=== PATIENT | female | born 1980 | race American Indian/Alaskan Native ===

== ENCOUNTER 2021-09-17 13:07 | Emergency (ER) | payer SELFPAY ==
[2021-09-17] MEDS ORDERED: IPRATROPIUM 0.02% NEBU 2.5 ML IH ONE (13:18)
[2021-09-17] MEDS ORDERED: ALBUTEROL 2.5 MG/3 ML NEBU IH ONE (13:18)
[2021-09-17] MEDS ORDERED: KETOROLAC 30 MG/1 ML INJ IV ONE (13:18)
[2021-09-17] MEDS ORDERED: fentaNYL 100 MCG/2 ML INJ IV ONE (13:19)
[2021-09-17] MEDS ORDERED: EPINEPHrine/PF 1 MG/1 ML INJ SUB-Q ONE (13:19)
[2021-09-17] MEDS ORDERED: LACTATED RINGERS 1,000 ML IV ONE (13:19)
--- NOTE | 2021-09-17 13:25 | Emergency Department Report ---
ED General Adult HPI - General Chief complaint: Adult Asthma Stated complaint: ASTHMA Time Seen by Provider: 09/17/21 13:18 Source: patient, EMS (Verbal report received from emergency medical services. EMS documentation not available at time of chart dictation ), RN notes reviewed, old records reviewed Mode of arrival: Stretcher Limitations: No Limitations - History of Present Illness Initial comments: The patient was evaluated in the emergency department for symptoms described in the history of present illness. He/she was evaluated in the context of the global COVID-19 pandemic, which necessitated consideration that the patient might be at risk for infection with the virus that causes COVID-19. Institutional protocols and algorithms that pertain to the evaluation of patients at risk for COVID-19 are in a state of rapid change based on information released by regulatory bodies including the CDC and federal and state organizations. These policies and algorithms were followed during the patient's care in the emergency department. Please note that these policies, procedures and recommendations changed on a rapid basis. This patient is a 41-year-old gentleman with a history of asthma and reactive airways disease, who presents to the ER today with EMS with a complaint of cough, wheezing, muscular back pain and chest wall pain. He reports this is similar to prior episodes of asthma exacerbation. He denies travel, surgery, immobilization, DVT/PE risk factors. He gave himself a 5 mg of his own albuterol, EMS administered 5 mg of albuterol, dexamethasone, as well as magnesium. In the emergency room, he was given additional albuterol, Atrovent, subcutaneous epinephrine, in addition to fentanyl and ketorolac. All of these dramatically improved his symptoms. He is now resting comfortably on a stretcher, and endorses significant improvement in symptoms. -: Gradual, hour(s) Consistency: constant Improves with: medication, rest Worsens with: movement - Related Data Previous Rx's Medication Instructions Recorded Last Taken Type Ibuprofen [Motrin 800 MG tab] 800 mg PO Q8HR PRN #30 tablet 09/03/19 Unknown Rx ALBUTEROL NEB's [Proventil 0.083% 2.5 mg IH TID PRN #30 neb 10/23/19 Unknown Rx NEBS] Ibuprofen [Motrin 600 MG tab] 600 mg PO Q8H PRN #20 tablet 03/28/20 Unknown Rx ALBUTEROL NEB's [Proventil 0.083% 2.5 mg IH TID PRN #1 box 04/15/20 Unknown Rx NEBS] Albuterol Mdi (or & Nicu Only) 2 puff IH QID PRN #1 inhalation 12/01/20 Unknown Rx [ProAir HFA Inhaler] Albuterol Sulfate [Albuterol 0.63% 0.63 mg IH TID PRN #1 box 12/01/20 Unknown Rx NEBS] Azithromycin [Zithromax Z-MARI] 250 mg PO DAILY #6 tab 12/01/20 Unknown Rx Montelukast [Singulair] 10 mg PO QPM #14 tablet 12/01/20 Unknown Rx Prednisone [predniSONE 10 mg 10 mg PO .TAPER #1 tab.ds.pk 12/01/20 Unknown Rx (6-Day Pack, 21 Tabs)] Albuterol Mdi (or & Nicu Only) 2 puff IH QID PRN #8.5 gram 01/17/21 Unknown Rx [ProAir HFA Inhaler] Albuterol Sulfate [Albuterol 0.63% 0.63 mg IH TID PRN #75 ml 02/11/21 Unknown Rx NEBS] Prednisone [predniSONE 10 mg 10 mg PO .TAPER #1 tab.ds.pk 02/11/21 Unknown Rx (6-Day Pack, 21 Tabs)] ALBUTEROL NEB's [Proventil 0.083% 2.5 mg IH TID PRN #1 box 04/28/21 Unknown Rx NEBS] Albuterol Mdi (or & Nicu Only) 2 puff IH QID PRN #8.5 gram 04/28/21 Unknown Rx [ProAir HFA Inhaler] Loratadine 10 mg PO DAILY 30 Days #30 capsule 04/28/21 Unknown Rx Prednisone [predniSONE 10 mg 10 mg PO .TAPER #1 tab.ds.pk 04/28/21 Unknown Rx (6-Day Pack, 21 Tabs)] ALBUTEROL NEB's [Proventil 0.083% 2.5 mg IH QID PRN #1 box 05/12/21 Unknown Rx NEBS] Albuterol Mdi (or & Nicu Only) 2 puff IH QID PRN #8.5 gram 05/12/21 Unknown Rx [ProAir HFA Inhaler] Budesonide/Formoterol Fumarate 1 inhalation IH DAILY #1 hfa.aer.ad 05/12/21 Unknown Rx [Symbicort 160-4.5 Mcg Inhaler] predniSONE [Deltasone] 40 mg PO QDAY 5 Days #10 tab 05/12/21 Unknown Rx ALBUTEROL NEB's [Proventil 0.083% 2.5 mg IH TID PRN #1 box 05/21/21 Unknown Rx NEBS] Albuterol Mdi (or & Nicu Only) 2 puff IH QID PRN #1 device 05/21/21 Unknown Rx [ProAir HFA Inhaler] Budesonide/Formoterol Fumarate 2 puff IH BID #1 device 05/21/21 Unknown Rx [Symbicort 160-4.5 Mcg Inhaler] Montelukast [Singulair] 10 mg PO QPM #30 tablet 05/21/21 Unknown Rx Prednisone [predniSONE 10 mg 10 mg PO .TAPER #1 05/21/21 Unknown Rx (6-Day Pack, 21 Tabs)] Albuterol Mdi (or & Nicu Only) 2 puff IH QID PRN #8.5 gram 06/19/21 Unknown Rx [ProAir HFA Inhaler] methylPREDNISolone [Medrol 4MG 4 mg PO DAILY #1 06/19/21 Unknown Rx DOSEPAK (21 tabs)] Albuterol Mdi (or & Nicu Only) 2 puff IH QID PRN #8.5 gram 07/14/21 Unknown Rx [ProAir HFA Inhaler] Albuterol Sulfate [Albuterol 0.63% 0.63 mg IH TID PRN #1 box 07/14/21 Unknown Rx NEBS] Benzonatate [Tessalon Perles] 100 mg PO Q8HR #21 cap 07/14/21 Unknown Rx Brompheniramine/Pseudoephed/Dm 10 ml PO TID PRN #120 ml 07/14/21 Unknown Rx [Bromfed Dm Cough Syrup] Montelukast [Singulair] 10 mg PO QPM #30 tablet 07/14/21 Unknown Rx Prednisone [predniSONE 10 mg 10 mg PO .TAPER #1 pack 07/14/21 Unknown Rx (6-Day Pack, 21 Tabs)] Albuterol Sulfate [Albuterol 0.63% 0.63 mg IH Q4HR PRN #2 ml 08/02/21 Unknown Rx NEBS] Albuterol Sulfate [Proair 90 mcg IH Q4HR PRN #2 aer.pow.ba 08/02/21 Unknown Rx Respiclick] predniSONE [Deltasone] 40 mg PO QDAY #8 tab 08/02/21 Unknown Rx ALBUTEROL NEB's [Proventil 0.083% 5 mg IH TID PRN #75 ml 09/07/21 Unknown Rx NEBS] Albuterol Mdi (or & Nicu Only) 2 puff IH QID PRN #1 inhalation 09/07/21 Unknown Rx [ProAir HFA Inhaler] Benzonatate [Tessalon Perles] 100 mg PO Q8HR PRN #30 capsule 09/07/21 Unknown Rx Loratadine 10 mg PO DAILY #30 cap 09/07/21 Unknown Rx Montelukast [Singulair] 10 mg PO QPM #30 tablet 09/07/21 Unknown Rx Prednisone [predniSONE 10 mg 10 mg PO .TAPER #21 tab.ds.pk 09/07/21 Unknown Rx (6-Day Pack, 21 Tabs)] Albuterol Sulfate [Albuterol 0.63% 0.63 mg IH Q4HR PRN #2 ml 09/17/21 Unknown Rx NEBS] Albuterol Sulfate [Proair 90 mcg IH Q4HR PRN #2 aer.pow.ba 09/17/21 Unknown Rx Respiclick] Montelukast [Singulair] 10 mg PO QPM #30 tablet 09/17/21 Unknown Rx predniSONE [Deltasone] 40 mg PO QDAY #8 tab 09/17/21 Unknown Rx Allergies Allergy/AdvReac Type Severity Reaction Status Date / Time No Known Allergies Allergy Verified 09/18/21 11:50 ED Review of Systems ROS: Stated complaint: ASTHMA Other details as noted in HPI Constitutional: denies: fever, malaise Eyes: denies: eye discharge ENT: congestion Respiratory: shortness of breath, SOB with exertion, SOB at rest, wheezing Cardiovascular: as per HPI. denies: syncope Gastrointestinal: denies: abdominal pain, vomiting Musculoskeletal: back pain Neurological: weakness Hematological/Lymphatic: denies: easy bleeding ED Past Medical Hx - Past Medical History Hx Asthma: Yes - Social History Smoking Status: Never Smoker Substance Use Type: None - Medications Home Medications: Home Medications Medication Instructions Recorded Confirmed Last Taken Type Ibuprofen [Motrin 800 MG tab] 800 mg PO Q8HR PRN #30 tablet 09/03/19 Unknown Rx ALBUTEROL NEB's [Proventil 0.083% 2.5 mg IH TID PRN #30 neb 10/23/19 Unknown Rx NEBS] Ibuprofen [Motrin 600 MG tab] 600 mg PO Q8H PRN #20 tablet 03/28/20 Unknown Rx ALBUTEROL NEB's [Proventil 0.083% 2.5 mg IH TID PRN #1 box 04/15/20 Unknown Rx NEBS] Albuterol Mdi (or & Nicu Only) 2 puff IH QID PRN #1 inhalation 12/01/20 Unknown Rx [ProAir HFA Inhaler] Albuterol Sulfate [Albuterol 0.63% 0.63 mg IH TID PRN #1 box 12/01/20 Unknown Rx NEBS] Azithromycin [Zithromax Z-MARI] 250 mg PO DAILY #6 tab 12/01/20 Unknown Rx Montelukast [Singulair] 10 mg PO QPM #14 tablet 12/01/20 Unknown Rx Prednisone [predniSONE 10 mg 10 mg PO .TAPER #1 tab.ds.pk 12/01/20 Unknown Rx (6-Day Pack, 21 Tabs)] Albuterol Mdi (or & Nicu Only) 2 puff IH QID PRN #8.5 gram 01/17/21 Unknown Rx [ProAir HFA Inhaler] Albuterol Sulfate [Albuterol 0.63% 0.63 mg IH TID PRN #75 ml 02/11/21 Unknown Rx NEBS] Prednisone [predniSONE 10 mg 10 mg PO .TAPER #1 tab.ds.pk 02/11/21 Unknown Rx (6-Day Pack, 21 Tabs)] ALBUTEROL NEB's [Proventil 0.083% 2.5 mg IH TID PRN #1 box 04/28/21 Unknown Rx NEBS] Albuterol Mdi (or & Nicu Only) 2 puff IH QID PRN #8.5 gram 04/28/21 Unknown Rx [ProAir HFA Inhaler] Loratadine 10 mg PO DAILY 30 Days #30 capsule 04/28/21 Unknown Rx Prednisone [predniSONE 10 mg 10 mg PO .TAPER #1 tab.ds.pk 04/28/21 Unknown Rx (6-Day Pack, 21 Tabs)] ALBUTEROL NEB's [Proventil 0.083% 2.5 mg IH QID PRN #1 box 05/12/21 Unknown Rx NEBS] Albuterol Mdi (or & Nicu Only) 2 puff IH QID PRN #8.5 gram 05/12/21 Unknown Rx [ProAir HFA Inhaler] Budesonide/Formoterol Fumarate 1 inhalation IH DAILY #1 hfa.aer.ad 05/12/21 Unknown Rx [Symbicort 160-4.5 Mcg Inhaler] predniSONE [Deltasone] 40 mg PO QDAY 5 Days #10 tab 05/12/21 Unknown Rx ALBUTEROL NEB's [Proventil 0.083% 2.5 mg IH TID PRN #1 box 05/21/21 Unknown Rx NEBS] Albuterol Mdi (or & Nicu Only) 2 puff IH QID PRN #1 device 05/21/21 Unknown Rx [ProAir HFA Inhaler] Budesonide/Formoterol Fumarate 2 puff IH BID #1 device 05/21/21 Unknown Rx [Symbicort 160-4.5 Mcg Inhaler] Montelukast [Singulair] 10 mg PO QPM #30 tablet 05/21/21 Unknown Rx Prednisone [predniSONE 10 mg 10 mg PO .TAPER #1 05/21/21 Unknown Rx (6-Day Pack, 21 Tabs)] Albuterol Mdi (or & Nicu Only) 2 puff IH QID PRN #8.5 gram 06/19/21 Unknown Rx [ProAir HFA Inhaler] methylPREDNISolone [Medrol 4MG 4 mg PO DAILY #1 06/19/21 Unknown Rx DOSEPAK (21 tabs)] Albuterol Mdi (or & Nicu Only) 2 puff IH QID PRN #8.5 gram 07/14/21 Unknown Rx [ProAir HFA Inhaler] Albuterol Sulfate [Albuterol 0.63% 0.63 mg IH TID PRN #1 box 07/14/21 Unknown Rx NEBS] Benzonatate [Tessalon Perles] 100 mg PO Q8HR #21 cap 07/14/21 Unknown Rx Brompheniramine/Pseudoephed/Dm 10 ml PO TID PRN #120 ml 04/01/22 Unknown Rx [Bromfed Dm Cough Syrup] Montelukast [Singulair] 10 mg PO QPM #30 tablet 07/14/21 Unknown Rx Prednisone [predniSONE 10 mg 10 mg PO .TAPER #1 pack 07/14/21 Unknown Rx (6-Day Pack, 21 Tabs)] Albuterol Sulfate [Albuterol 0.63% 0.63 mg IH Q4HR PRN #2 ml 08/02/21 Unknown Rx NEBS] Albuterol Sulfate [Proair 90 mcg IH Q4HR PRN #2 aer.pow.ba 08/02/21 Unknown Rx Respiclick] predniSONE [Deltasone] 40 mg PO QDAY #8 tab 08/02/21 Unknown Rx ALBUTEROL NEB's [Proventil 0.083% 5 mg IH TID PRN #75 ml 09/07/21 Unknown Rx NEBS] Albuterol Mdi (or & Nicu Only) 2 puff IH QID PRN #1 inhalation 09/07/21 Unknown Rx [ProAir HFA Inhaler] Benzonatate [Tessalon Perles] 100 mg PO Q8HR PRN #30 capsule 09/07/21 Unknown Rx Loratadine 10 mg PO DAILY #30 cap 09/07/21 Unknown Rx Montelukast [Singulair] 10 mg PO QPM #30 tablet 09/07/21 Unknown Rx Prednisone [predniSONE 10 mg 10 mg PO .TAPER #21 tab.ds.pk 09/07/21 Unknown Rx (6-Day Pack, 21 Tabs)] Albuterol Sulfate [Albuterol 0.63% 0.63 mg IH Q4HR PRN #2 ml 09/17/21 Unknown Rx NEBS] Albuterol Sulfate [Proair 90 mcg IH Q4HR PRN #2 aer.pow.ba 09/17/21 Unknown Rx Respiclick] Montelukast [Singulair] 10 mg PO QPM #30 tablet 09/17/21 Unknown Rx predniSONE [Deltasone] 40 mg PO QDAY #8 tab 09/17/21 Unknown Rx ED Physical Exam - General Limitations: No Limitations General appearance: alert, anxious - Head Head exam: Present: atraumatic, normocephalic - Eye Eye exam: Present: normal appearance, EOMI. Absent: nystagmus - ENT ENT exam: Present: normal exam, normal orophraynx, mucous membranes moist, normal external ear exam - Neck Neck exam: Present: normal inspection, full ROM. Absent: tenderness, meningismus - Respiratory Respiratory exam: Present: respiratory distress, wheezes, rhonchi, chest wall tenderness, accessory muscle use - Cardiovascular Cardiovascular Exam: Present: normal rhythm, tachycardia, normal heart sounds. Absent: bradycardia, irregular rhythm, systolic murmur, diastolic murmur, rubs, gallop - GI/Abdominal GI/Abdominal exam: Present: soft. Absent: distended, tenderness, guarding, rebound, rigid, pulsatile mass - Extremities Exam Extremities exam: Present: normal inspection, full ROM, other (2+ pulses noted in the bilateral upper and lower extremities. There is no palpable cord. negative Homans sign. Muscular compartments are soft. The pelvis is stable.). Absent: pedal edema, calf tenderness - Back Exam Back exam: Present: normal inspection, full ROM. Absent: tenderness, CVA tenderness (R), CVA tenderness (L), paraspinal tenderness, vertebral tenderness - Neurological Exam Neurological exam: Present: alert, oriented X3, normal gait, other (No facial droop. Tongue midline. Extraocular movements intact bilaterally. Facial sensation intact to light touch in V1, V2, V3 distribution bilaterally. 5 and a 5 strength in 4 extremities. Sensation intact to light touch in 4 extremities.). Absent: motor sensory deficit - Psychiatric Psychiatric exam: Present: anxious - Skin Skin exam: Present: warm, dry, intact, normal color. Absent: rash ED Course Vital Signs 09/17/21 09/17/21 09/17/21 13:09 13:20 13:22 Temperature 98.1 F Pulse Rate 124 H 122 H Pulse Rate [ Bilateral] Respiratory 20 Rate Respiratory Rate [Bilateral ] Blood Pressure 108/70 Blood Pressure 108/75 [Left] O2 Sat by Pulse 99 96 97 Oximetry 09/17/21 13:24 Temperature Pulse Rate Pulse Rate [ 115 H Bilateral] Respiratory Rate Respiratory 24 Rate [Bilateral ] Blood Pressure Blood Pressure [Left] O2 Sat by Pulse Oximetry - Reevaluation(s) Reevaluation #1: 09/17/21 13:57 Differential diagnosis, including but not limited to: Asthma exacerbation, bronchitis, costochondritis, pneumothorax, reactive airways disease Assessment and plan: 41-year-old gentleman, with reactive airways disease exacerbation. He denies DVT and pulmonary embolism risk factors, and he is low risk by Wells criteria for pulmonary embolism He was given albuterol, Atrovent, ketorolac, fentanyl, in the emergency room, with dramatic resolution of symptoms. EMS has administered albuterol, Decadron, and magnesium. His EKG is essentially unremarkable. His chest x-ray is unremarkable. His work of breathing is improved. He is still completing his albuterol and Atrovent therapy here in the emergency room, but given his remarkable clinical improvement, resolution of tachycardia, resolution of tachypnea and work of breathing, I anticipate that he will be suitable for discharge with appropriate medications. Reevaluation #2: 09/17/21 14:00 Heart rate currently 93 bpm. Reevaluation #3: 09/17/21 14:18 Final reassessment. On cell phone. In no acute distress. Tachycardia likely secondary to albuterol and epinephrine. No significant hypoxia. Suitable for discharge with outpatient follow-up Wheezing is markedly improved. ED Medical Decision Making - Lab Data Vital Signs 09/17/21 09/17/21 09/17/21 13:09 13:20 13:22 Temperature 98.1 F Pulse Rate 124 H 122 H Respiratory 20 Rate Blood Pressure 108/70 Blood Pressure 108/75 [Left] O2 Sat by Pulse 99 96 97 Oximetry - EKG Data -: EKG Interpreted by Ia EKG shows normal: sinus rhythm Rate: normal - EKG Data 09/17/21 13:56 The EKG is interpreted at 13: 56 Sinus rhythm, 93 bpm. Normal axis, normal P wave axis, normal intervals, and high left ventricular voltage. Abnormal EKG. Not a STEMI. - Radiology Data Radiology results: pending, report reviewed, image reviewed CHEST 1 VIEW INDICATION: dyspnea. COMPARISON: 09/07/21 FINDINGS: SUPPORT DEVICES: None. HEART: Within normal limits. LUNGS/PLEURA: No acute air space or interstitial disease. ADDITIONAL FINDINGS: None. IMPRESSION: 1. No acute findings. Signer Name: Gurwinder Khan MD Signed: 09/17/2021 12:44 PM Workstation Name: [id number] Critical care attestation.: If time is entered above; I have spent that time in minutes in the direct care of this critically ill patient, excluding procedure time. ED Disposition Clinical Impression: Asthma exacerbation Qualifiers: Asthma severity: moderate Asthma persistence: unspecified Qualified Code(s): J45.901 - Unspecified asthma with (acute) exacerbation Disposition: 01 HOME / SELF CARE / HOMELESS Is pt being admited?: No Does the pt Need Aspirin: No Condition: Good Instructions: Asthma, Adult Additional Instructions: Avoid consumption of alcohol, tobacco, and smoke products. May take an [id number] allergy medication as needed on a daily basis. Recommend follow-up with an outpatient primary care doctor or alkylation operator within the next week to 10 days. Take the medications as prescribed/directed. Please return to the emergency room right away with new pain, worsened pain, migration of pain, projectile vomiting, change in mental status, confusion, inability tolerate liquid feeds, new, worsened or different symptoms not present on the initial emergency room evaluation Prescriptions: Albuterol Sulfate [Albuterol 0.63% NEBS] 0.63 mg IH Q4HR PRN #2 ml PRN Reason: Wheezing predniSONE [Deltasone] 40 mg PO QDAY #8 tab Albuterol Sulfate [Proair Respiclick] 90 mcg IH Q4HR PRN #2 aer.pow.ba PRN Reason: Wheezing Montelukast [Singulair] 10 mg PO QPM #30 tablet Referrals: TERRIE PIERSON MD [Staff Physician] - 7-10 days [facility] [Provider Group] - 7-10 days Forms: Work/School Release Form(ED)
[2021-09-17 13:26] VITALS: BP 108/70
--- NOTE | 2021-09-17 13:49 | XRay Report ---
CHEST 1 VIEW INDICATION: dyspnea. COMPARISON: 09/07/21 FINDINGS: SUPPORT DEVICES: None. HEART: Within normal limits. LUNGS/PLEURA: No acute air space or interstitial disease. ADDITIONAL FINDINGS: None. IMPRESSION: 1. No acute findings. Signer Name: Gurwinder Khan MD Signed: 09/17/2021 1:44 PM Workstation Name: [id number]
--- NOTE | 2021-09-21 11:40 | Electrocardiograph Report ---
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
== END 2021-09-17 15:00 | disposition home or self-care (01) ==
LOC: EDSEX → ED 13:07 → MERGE 13:07 → ED 15:00
DX: J45.901 Unspecified asthma with (acute) exacerbation (principal); Z79.899 Other long term (current) drug therapy
CPT/HCPCS: 71045; 93005; 94640; 96361; 96372; 96374; 96375; 99284; J0171; J1885; J3010; J7120; 94644

== ENCOUNTER 2021-10-01 14:16 | Emergency (ER) | payer SELFPAY ==
[2021-10-01] MEDS ORDERED: methylPREDNISolone Sod Succinate 125 MG/2 ML INJ IM ONE (17:05)
[2021-10-01] MEDS ORDERED: ALBUTEROL 2.5 MG/3 ML NEBU IH ONE (17:05)
[2021-10-01] MEDS ORDERED: IPRATROPIUM 0.02% NEBU 2.5 ML IH ONE (17:05)
--- NOTE | 2021-10-01 17:41 | Emergency Department Report ---
ED Asthma HPI - General Chief Complaint: Adult Asthma Stated Complaint: ASTHMA Time Seen by Provider: 10/01/21 17:07 Source: patient Mode of arrival: Ambulatory Limitations: No Limitations - History of Present Illness Initial Comments: 41-year-old male presents to the ED complaining of shortness of breath. Patient states he has been using his albuterol inhaler at home with mom with mild relief. Patient has a history of asthma. He states that he has been intubated x2. Patient denies any chest pain, fever chills or abdominal pain at present time. Patient is alert and oriented x3. No acute distress noted at present. No Ill appearance noted at present time. MD Complaint: shortness of breath -: This morning Asthma History: childhood onset Severity: moderate Context: none known Associated Symptoms: none Treatments Prior to Arrival: inhaled bronchodilator - Related Data Current Asthma Therapy: inhaled bronchodilator, inhaled steroid Previous Rx's Medication Instructions Recorded Last Taken Type Ibuprofen [Motrin 800 MG tab] 800 mg PO Q8HR PRN #30 tablet 09/03/19 Unknown Rx ALBUTEROL NEB's [Proventil 0.083% 2.5 mg IH TID PRN #30 neb 10/23/19 Unknown Rx NEBS] Ibuprofen [Motrin 600 MG tab] 600 mg PO Q8H PRN #20 tablet 03/28/20 Unknown Rx ALBUTEROL NEB's [Proventil 0.083% 2.5 mg IH TID PRN #1 box 04/15/20 Unknown Rx NEBS] Albuterol Mdi (or & Nicu Only) 2 puff IH QID PRN #1 inhalation 12/01/20 Unknown Rx [ProAir HFA Inhaler] Albuterol Sulfate [Albuterol 0.63% 0.63 mg IH TID PRN #1 box 12/01/20 Unknown Rx NEBS] Azithromycin [Zithromax Z-MARI] 250 mg PO DAILY #6 tab 12/01/20 Unknown Rx Montelukast [Singulair] 10 mg PO QPM #14 tablet 12/01/20 Unknown Rx Prednisone [predniSONE 10 mg 10 mg PO .TAPER #1 tab.ds.pk 12/01/20 Unknown Rx (6-Day Pack, 21 Tabs)] Albuterol Mdi (or & Nicu Only) 2 puff IH QID PRN #8.5 gram 01/17/21 Unknown Rx [ProAir HFA Inhaler] Albuterol Sulfate [Albuterol 0.63% 0.63 mg IH TID PRN #75 ml 02/11/21 Unknown Rx NEBS] Prednisone [predniSONE 10 mg 10 mg PO .TAPER #1 tab.ds.pk 02/11/21 Unknown Rx (6-Day Pack, 21 Tabs)] ALBUTEROL NEB's [Proventil 0.083% 2.5 mg IH TID PRN #1 box 04/28/21 Unknown Rx NEBS] Albuterol Mdi (or & Nicu Only) 2 puff IH QID PRN #8.5 gram 04/28/21 Unknown Rx [ProAir HFA Inhaler] Loratadine 10 mg PO DAILY 30 Days #30 capsule 04/28/21 Unknown Rx Prednisone [predniSONE 10 mg 10 mg PO .TAPER #1 tab.ds.pk 04/28/21 Unknown Rx (6-Day Pack, 21 Tabs)] ALBUTEROL NEB's [Proventil 0.083% 2.5 mg IH QID PRN #1 box 05/12/21 Unknown Rx NEBS] Albuterol Mdi (or & Nicu Only) 2 puff IH QID PRN #8.5 gram 05/12/21 Unknown Rx [ProAir HFA Inhaler] Budesonide/Formoterol Fumarate 1 inhalation IH DAILY #1 hfa.aer.ad 05/12/21 Unknown Rx [Symbicort 160-4.5 Mcg Inhaler] predniSONE [Deltasone] 40 mg PO QDAY 5 Days #10 tab 05/12/21 Unknown Rx ALBUTEROL NEB's [Proventil 0.083% 2.5 mg IH TID PRN #1 box 05/21/21 Unknown Rx NEBS] Albuterol Mdi (or & Nicu Only) 2 puff IH QID PRN #1 device 05/21/21 Unknown Rx [ProAir HFA Inhaler] Budesonide/Formoterol Fumarate 2 puff IH BID #1 device 05/21/21 Unknown Rx [Symbicort 160-4.5 Mcg Inhaler] Montelukast [Singulair] 10 mg PO QPM #30 tablet 05/21/21 Unknown Rx Prednisone [predniSONE 10 mg 10 mg PO .TAPER #1 05/21/21 Unknown Rx (6-Day Pack, 21 Tabs)] Albuterol Mdi (or & Nicu Only) 2 puff IH QID PRN #8.5 gram 06/19/21 Unknown Rx [ProAir HFA Inhaler] methylPREDNISolone [Medrol 4MG 4 mg PO DAILY #1 06/19/21 Unknown Rx DOSEPAK (21 tabs)] Albuterol Mdi (or & Nicu Only) 2 puff IH QID PRN #8.5 gram 07/14/21 Unknown Rx [ProAir HFA Inhaler] Albuterol Sulfate [Albuterol 0.63% 0.63 mg IH TID PRN #1 box 07/14/21 Unknown Rx NEBS] Benzonatate [Tessalon Perles] 100 mg PO Q8HR #21 cap 07/14/21 Unknown Rx Brompheniramine/Pseudoephed/Dm 10 ml PO TID PRN #120 ml 07/14/21 Unknown Rx [Bromfed Dm Cough Syrup] Montelukast [Singulair] 10 mg PO QPM #30 tablet 07/14/21 Unknown Rx Prednisone [predniSONE 10 mg 10 mg PO .TAPER #1 pack 07/14/21 Unknown Rx (6-Day Pack, 21 Tabs)] Albuterol Sulfate [Albuterol 0.63% 0.63 mg IH Q4HR PRN #2 ml 08/02/21 Unknown Rx NEBS] Albuterol Sulfate [Proair 90 mcg IH Q4HR PRN #2 aer.pow.ba 08/02/21 Unknown Rx Respiclick] predniSONE [Deltasone] 40 mg PO QDAY #8 tab 08/02/21 Unknown Rx ALBUTEROL NEB's [Proventil 0.083% 5 mg IH TID PRN #75 ml 09/07/21 Unknown Rx NEBS] Albuterol Mdi (or & Nicu Only) 2 puff IH QID PRN #1 inhalation 09/07/21 Unknown Rx [ProAir HFA Inhaler] Benzonatate [Tessalon Perles] 100 mg PO Q8HR PRN #30 capsule 09/07/21 Unknown Rx Loratadine 10 mg PO DAILY #30 cap 09/07/21 Unknown Rx Montelukast [Singulair] 10 mg PO QPM #30 tablet 05/26/22 Unknown Rx Prednisone [predniSONE 10 mg 10 mg PO .TAPER #21 tab.ds.pk 09/07/21 Unknown Rx (6-Day Pack, 21 Tabs)] Albuterol Sulfate [Albuterol 0.63% 0.63 mg IH Q4HR PRN #2 ml 09/17/21 Unknown Rx NEBS] Albuterol Sulfate [Proair 90 mcg IH Q4HR PRN #2 aer.pow.ba 09/17/21 Unknown Rx Respiclick] Montelukast [Singulair] 10 mg PO QPM #30 tablet 09/17/21 Unknown Rx predniSONE [Deltasone] 40 mg PO QDAY #8 tab 09/17/21 Unknown Rx Albuterol Mdi (or & Nicu Only) 2 puff IH QID PRN 30 Days #8.5 gram 10/01/21 Unknown Rx [ProAir HFA Inhaler] Albuterol Sulfate [Albuterol 0.63% 0.63 mg IH TID PRN 30 Days #1 box 10/01/21 Unknown Rx NEBS] predniSONE [Deltasone] 50 mg PO QDAY 5 Days #5 tab 10/01/21 Unknown Rx Allergies Allergy/AdvReac Type Severity Reaction Status Date / Time No Known Allergies Allergy Verified 09/18/21 11:50 ED Review of Systems ROS: Stated complaint: ASTHMA Other details as noted in HPI Constitutional: denies: chills, fever Eyes: denies: eye pain, eye discharge, vision change ENT: denies: ear pain, throat pain Respiratory: denies: cough, shortness of breath, wheezing Cardiovascular: denies: chest pain, palpitations Endocrine: no symptoms reported Gastrointestinal: denies: abdominal pain, nausea, diarrhea Genitourinary: denies: urgency, dysuria Musculoskeletal: denies: back pain, joint swelling, arthralgia Skin: denies: rash, lesions Neurological: denies: headache, weakness, paresthesias Psychiatric: denies: anxiety, depression Hematological/Lymphatic: denies: easy bleeding, easy bruising ED Past Medical Hx - Past Medical History Previous Medical History?: Yes Hx Asthma: Yes (Intubation x2) - Surgical History Past Surgical History?: No - Social History Smoking Status: Current Some Day Smoker - Medications Home Medications: Home Medications Medication Instructions Recorded Confirmed Last Taken Type Ibuprofen [Motrin 800 MG tab] 800 mg PO Q8HR PRN #30 tablet 09/03/19 Unknown Rx ALBUTEROL NEB's [Proventil 0.083% 2.5 mg IH TID PRN #30 neb 10/23/19 Unknown Rx NEBS] Ibuprofen [Motrin 600 MG tab] 600 mg PO Q8H PRN #20 tablet 03/28/20 Unknown Rx ALBUTEROL NEB's [Proventil 0.083% 2.5 mg IH TID PRN #1 box 04/15/20 Unknown Rx NEBS] Albuterol Mdi (or & Nicu Only) 2 puff IH QID PRN #1 inhalation 12/01/20 Unknown Rx [ProAir HFA Inhaler] Albuterol Sulfate [Albuterol 0.63% 0.63 mg IH TID PRN #1 box 12/01/20 Unknown Rx NEBS] Azithromycin [Zithromax Z-MARI] 250 mg PO DAILY #6 tab 12/01/20 Unknown Rx Montelukast [Singulair] 10 mg PO QPM #14 tablet 12/01/20 Unknown Rx Prednisone [predniSONE 10 mg 10 mg PO .TAPER #1 tab.ds.pk 12/01/20 Unknown Rx (6-Day Pack, 21 Tabs)] Albuterol Mdi (or & Nicu Only) 2 puff IH QID PRN #8.5 gram 01/17/21 Unknown Rx [ProAir HFA Inhaler] Albuterol Sulfate [Albuterol 0.63% 0.63 mg IH TID PRN #75 ml 02/11/21 Unknown Rx NEBS] Prednisone [predniSONE 10 mg 10 mg PO .TAPER #1 tab.ds.pk 02/11/21 Unknown Rx (6-Day Pack, 21 Tabs)] ALBUTEROL NEB's [Proventil 0.083% 2.5 mg IH TID PRN #1 box 04/28/21 Unknown Rx NEBS] Albuterol Mdi (or & Nicu Only) 2 puff IH QID PRN #8.5 gram 04/28/21 Unknown Rx [ProAir HFA Inhaler] Loratadine 10 mg PO DAILY 30 Days #30 capsule 04/28/21 Unknown Rx Prednisone [predniSONE 10 mg 10 mg PO .TAPER #1 tab.ds.pk 04/28/21 Unknown Rx (6-Day Pack, 21 Tabs)] ALBUTEROL NEB's [Proventil 0.083% 2.5 mg IH QID PRN #1 box 05/12/21 Unknown Rx NEBS] Albuterol Mdi (or & Nicu Only) 2 puff IH QID PRN #8.5 gram 05/12/21 Unknown Rx [ProAir HFA Inhaler] Budesonide/Formoterol Fumarate 1 inhalation IH DAILY #1 hfa.aer.ad 05/12/21 Unknown Rx [Symbicort 160-4.5 Mcg Inhaler] predniSONE [Deltasone] 40 mg PO QDAY 5 Days #10 tab 05/12/21 Unknown Rx ALBUTEROL NEB's [Proventil 0.083% 2.5 mg IH TID PRN #1 box 05/21/21 Unknown Rx NEBS] Albuterol Mdi (or & Nicu Only) 2 puff IH QID PRN #1 device 05/21/21 Unknown Rx [ProAir HFA Inhaler] Budesonide/Formoterol Fumarate 2 puff IH BID #1 device 05/21/21 Unknown Rx [Symbicort 160-4.5 Mcg Inhaler] Montelukast [Singulair] 10 mg PO QPM #30 tablet 05/21/21 Unknown Rx Prednisone [predniSONE 10 mg 10 mg PO .TAPER #1 05/21/21 Unknown Rx (6-Day Pack, 21 Tabs)] Albuterol Mdi (or & Nicu Only) 2 puff IH QID PRN #8.5 gram 06/19/21 Unknown Rx [ProAir HFA Inhaler] methylPREDNISolone [Medrol 4MG 4 mg PO DAILY #1 06/19/21 Unknown Rx DOSEPAK (21 tabs)] Albuterol Mdi (or & Nicu Only) 2 puff IH QID PRN #8.5 gram 07/14/21 Unknown Rx [ProAir HFA Inhaler] Albuterol Sulfate [Albuterol 0.63% 0.63 mg IH TID PRN #1 box 07/14/21 Unknown Rx NEBS] Benzonatate [Tessalon Perles] 100 mg PO Q8HR #21 cap 07/14/21 Unknown Rx Brompheniramine/Pseudoephed/Dm 10 ml PO TID PRN #120 ml 07/14/21 Unknown Rx [Bromfed Dm Cough Syrup] Montelukast [Singulair] 10 mg PO QPM #30 tablet 07/14/21 Unknown Rx Prednisone [predniSONE 10 mg 10 mg PO .TAPER #1 pack 07/14/21 Unknown Rx (6-Day Pack, 21 Tabs)] Albuterol Sulfate [Albuterol 0.63% 0.63 mg IH Q4HR PRN #2 ml 08/02/21 Unknown Rx NEBS] Albuterol Sulfate [Proair 90 mcg IH Q4HR PRN #2 aer.pow.ba 08/02/21 Unknown Rx Respiclick] predniSONE [Deltasone] 40 mg PO QDAY #8 tab 08/02/21 Unknown Rx ALBUTEROL NEB's [Proventil 0.083% 5 mg IH TID PRN #75 ml 09/07/21 Unknown Rx NEBS] Albuterol Mdi (or & Nicu Only) 2 puff IH QID PRN #1 inhalation 09/07/21 Unknown Rx [ProAir HFA Inhaler] Benzonatate [Tessalon Perles] 100 mg PO Q8HR PRN #30 capsule 09/07/21 Unknown Rx Loratadine 10 mg PO DAILY #30 cap 09/07/21 Unknown Rx Montelukast [Singulair] 10 mg PO QPM #30 tablet 09/07/21 Unknown Rx Prednisone [predniSONE 10 mg 10 mg PO .TAPER #21 tab.ds.pk 09/07/21 Unknown Rx (6-Day Pack, 21 Tabs)] Albuterol Sulfate [Albuterol 0.63% 0.63 mg IH Q4HR PRN #2 ml 09/17/21 Unknown Rx NEBS] Albuterol Sulfate [Proair 90 mcg IH Q4HR PRN #2 aer.pow.ba 09/17/21 Unknown Rx Respiclick] Montelukast [Singulair] 10 mg PO QPM #30 tablet 09/17/21 Unknown Rx predniSONE [Deltasone] 40 mg PO QDAY #8 tab 09/17/21 Unknown Rx Albuterol Mdi (or & Nicu Only) 2 puff IH QID PRN 30 Days #8.5 gram 10/01/21 Unknown Rx [ProAir HFA Inhaler] Albuterol Sulfate [Albuterol 0.63% 0.63 mg IH TID PRN 30 Days #1 box 10/01/21 Unknown Rx NEBS] predniSONE [Deltasone] 50 mg PO QDAY 5 Days #5 tab 10/01/21 Unknown Rx ED Physical Exam - General Limitations: No Limitations General appearance: alert, in no apparent distress - Head Head exam: Present: atraumatic, normocephalic - Eye Eye exam: Present: normal appearance - ENT ENT exam: Present: mucous membranes moist - Neck Neck exam: Present: normal inspection - Respiratory Respiratory exam: Present: normal lung sounds bilaterally, wheezes. Absent: respiratory distress - Cardiovascular Cardiovascular Exam: Present: regular rate, normal rhythm. Absent: systolic murmur, diastolic murmur, rubs, gallop - GI/Abdominal GI/Abdominal exam: Present: soft, normal bowel sounds - Rectal Rectal exam: Present: deferred - Extremities Exam Extremities exam: Present: normal inspection - Back Exam Back exam: Present: normal inspection - Neurological Exam Neurological exam: Present: alert, oriented X3 - Psychiatric Psychiatric exam: Present: normal affect, normal mood - Skin Skin exam: Present: warm, dry, intact, normal color. Absent: rash ED Course Vital Signs 10/01/21 10/01/21 16:37 17:19 Temperature 98.1 F Pulse Rate 81 Respiratory 24 22 Rate Blood Pressure 96/76 [Right] O2 Sat by Pulse 98 95 Oximetry ED Medical Decision Making - Radiology Data [facility] [address] [place] [address] XRay Report Signed Patient: STEPHANIE PATEL MR#: [id number] : 1980 Acct:[id number] Age/Sex: 41 / M ADM Date: 10/01/21 Loc: ED Attending Dr: Ordering Physician: HARLAN DANIELLE Date of Service: 10/01/21 Procedure(s): XR chest routine 2V Accession Number(s): [id number] cc: HARLAN DANIELLE Fluoro Time In Minutes: CHEST 2 VIEWS INDICATION: Asthma. COMPARISON: 09/17/2021 FINDINGS: SUPPORT DEVICES: None. HEART: Within normal limits. LUNGS/PLEURA: No acute air space or interstitial disease. No pneumothorax. ADDITIONAL FINDINGS: None. IMPRESSION: 1. No acute findings. Signer Name: Gurwinder Khan MD Signed: 10/01/2021 5:42 PM Workstation Name: [id number] Transcribed By: CHRYSTAL Dictated By: Gurwinder Khan MD Electronically Authenticated By: Gurwinder Khan MD Signed Date/Time: 10/01/211741 DD/ 41 TD/TT: - Medical Decision Making 41-year-old male presents to the ED complaining of shortness of breath. Patient states he has been using his albuterol inhaler at home with mom with mild relief. Patient has a history of asthma. He states that he has been intubated x2. Patient denies any chest pain, fever chills or abdominal pain at present time. Patient is alert and oriented x3. No acute distress noted at present. No Ill appearance noted at present time. Physical examination is had wheezing noted in all lung hong . Patient is given albuterol 10 mg neb and Atrovent 1 mg neb . Solu-Medrol 120mg Im giving. No further bleeding is noted at time of discharge. 2 view chest x-ray shows no abnormality. bp 116/89 at time of d ischarge Rechecked the patient is resting quietly quietly and comfortable and feeling better. I discussed the results of diagnostic study, my clinical impression and the plan for further treatment with the patient. Patient agrees with plan and discharge at this present time. All question addressed. I have given the patient instruction regarding a diagnosis ,expectation ,follow- up and return precaution. I explained to the patient that emergent condition may arise and to return to the ED for new worsen and any new persisting condition. I have explained the importance of following up with the primary care physician or referral physician listed below has instructed. The patient verbalized understanding of discharge instruction. Critical care attestation.: If time is entered above; I have spent that time in minutes in the direct care of this critically ill patient, excluding procedure time. ED Disposition Clinical Impression: Asthma exacerbation Qualifiers: Asthma severity: moderate Asthma persistence: unspecified Qualified Code(s): J45.901 - Unspecified asthma with (acute) exacerbation Disposition: 01 HOME / SELF CARE / HOMELESS Is pt being admited?: No Does the pt Need Aspirin: No Condition: Stable Instructions: Asthma, Adult Additional Instructions: Take medication as prescribed return to the ED for any worsening symptom Prescriptions: Albuterol Sulfate [Albuterol 0.63% NEBS] 0.63 mg IH TID PRN 30 Days #1 box PRN Reason: Wheezing predniSONE [Deltasone] 50 mg PO QDAY 5 Days #5 tab Albuterol Mdi (or & Nicu Only) [ProAir HFA Inhaler] 2 puff IH QID PRN 30 Days #8.5 gram PRN Reason: Shortness Of Breath Referrals: ELLY MTZ MD [Staff Physician] - 3-5 Days Forms: Work/School Release Form(ED) Time of Disposition: 18:56
--- NOTE | 2021-10-01 17:46 | XRay Report ---
CHEST 2 VIEWS INDICATION: Asthma. COMPARISON: 09/17/2021 FINDINGS: SUPPORT DEVICES: None. HEART: Within normal limits. LUNGS/PLEURA: No acute air space or interstitial disease. No pneumothorax. ADDITIONAL FINDINGS: None. IMPRESSION: 1. No acute findings. Signer Name: Gurwinder Khan MD Signed: 10/01/2021 5:42 PM Workstation Name: [id number]
[2021-10-01 19:08] VITALS: BP 116/89
== END 2021-10-01 19:06 | disposition home or self-care (01) ==
LOC: ED 14:16
DX: J45.901 Unspecified asthma with (acute) exacerbation (principal); F17.200 Nicotine dependence, unspecified, uncomplicated; Z79.899 Other long term (current) drug therapy
CPT/HCPCS: 71046; 94640; 96372; 99283; J2930

== ENCOUNTER 2021-10-28 09:26 | Emergency (ER) | payer SELFPAY ==
[2021-10-28] MEDS ORDERED: ALBUTEROL 2.5 MG/3 ML NEBU IH ONE (16:40)
[2021-10-28] MEDS ORDERED: IPRATROPIUM 0.02% NEBU 2.5 ML IH ONE (16:41)
[2021-10-28] MEDS ORDERED: methylPREDNISolone Sod Succinate 125 MG/2 ML INJ IM ONE (16:42)
--- NOTE | 2021-10-28 16:57 | Emergency Department Report ---
ED Asthma HPI - General Chief Complaint: Adult Asthma Stated Complaint: ASTHMA/SOB/CHEST TIGHTNESS Source: patient Mode of arrival: Ambulatory Limitations: No Limitations - History of Present Illness Initial Comments: 41-year-old female presents to the ED complaining of shortness of breath times this a.m. patient has a history of asthma has been intubated several times. Patient states that he do not have a current primary care doctor. Patient states that he frequently comes to the ED for asthma medication. Patient states that he is working on his financial situation so that he would be able to get to a primary care doctor. Patient states he do have a nebulizer machine at home. He is currently out of the medication. Patient is alert and oriented x3. No acute distress noted. No ill appearance noted. MD Complaint: shortness of breath Onset/Timin -: Gradual Asthma History: childhood onset Severity: mild Context: none known Associated Symptoms: none - Related Data Current Asthma Therapy: none Previous Rx's Medication Instructions Recorded Last Taken Type Ibuprofen [Motrin 800 MG tab] 800 mg PO Q8HR PRN #30 tablet 09/03/19 Unknown Rx ALBUTEROL NEB's [Proventil 0.083% 2.5 mg IH TID PRN #30 neb 10/23/19 Unknown Rx NEBS] Ibuprofen [Motrin 600 MG tab] 600 mg PO Q8H PRN #20 tablet 03/28/20 Unknown Rx ALBUTEROL NEB's [Proventil 0.083% 2.5 mg IH TID PRN #1 box 04/15/20 Unknown Rx NEBS] Albuterol Mdi (or & Nicu Only) 2 puff IH QID PRN #1 inhalation 12/01/20 Unknown Rx [ProAir HFA Inhaler] Albuterol Sulfate [Albuterol 0.63% 0.63 mg IH TID PRN #1 box 12/01/20 Unknown Rx NEBS] Azithromycin [Zithromax Z-MARI] 250 mg PO DAILY #6 tab 12/01/20 Unknown Rx Montelukast [Singulair] 10 mg PO QPM #14 tablet 12/01/20 Unknown Rx Prednisone [predniSONE 10 mg 10 mg PO .TAPER #1 tab.ds.pk 12/01/20 Unknown Rx (6-Day Pack, 21 Tabs)] Albuterol Mdi (or & Nicu Only) 2 puff IH QID PRN #8.5 gram 01/17/21 Unknown Rx [ProAir HFA Inhaler] Albuterol Sulfate [Albuterol 0.63% 0.63 mg IH TID PRN #75 ml 02/11/21 Unknown Rx NEBS] Prednisone [predniSONE 10 mg 10 mg PO .TAPER #1 tab.ds.pk 02/11/21 Unknown Rx (6-Day Pack, 21 Tabs)] ALBUTEROL NEB's [Proventil 0.083% 2.5 mg IH TID PRN #1 box 04/28/21 Unknown Rx NEBS] Albuterol Mdi (or & Nicu Only) 2 puff IH QID PRN #8.5 gram 04/28/21 Unknown Rx [ProAir HFA Inhaler] Loratadine 10 mg PO DAILY 30 Days #30 capsule 04/28/21 Unknown Rx Prednisone [predniSONE 10 mg 10 mg PO .TAPER #1 tab.ds.pk 04/28/21 Unknown Rx (6-Day Pack, 21 Tabs)] ALBUTEROL NEB's [Proventil 0.083% 2.5 mg IH QID PRN #1 box 05/12/21 Unknown Rx NEBS] Albuterol Mdi (or & Nicu Only) 2 puff IH QID PRN #8.5 gram 05/12/21 Unknown Rx [ProAir HFA Inhaler] Budesonide/Formoterol Fumarate 1 inhalation IH DAILY #1 hfa.aer.ad 05/12/21 Unknown Rx [Symbicort 160-4.5 Mcg Inhaler] predniSONE [Deltasone] 40 mg PO QDAY 5 Days #10 tab 05/12/21 Unknown Rx ALBUTEROL NEB's [Proventil 0.083% 2.5 mg IH TID PRN #1 box 05/21/21 Unknown Rx NEBS] Albuterol Mdi (or & Nicu Only) 2 puff IH QID PRN #1 device 05/21/21 Unknown Rx [ProAir HFA Inhaler] Budesonide/Formoterol Fumarate 2 puff IH BID #1 device 05/21/21 Unknown Rx [Symbicort 160-4.5 Mcg Inhaler] Montelukast [Singulair] 10 mg PO QPM #30 tablet 05/21/21 Unknown Rx Prednisone [predniSONE 10 mg 10 mg PO .TAPER #1 05/21/21 Unknown Rx (6-Day Pack, 21 Tabs)] Albuterol Mdi (or & Nicu Only) 2 puff IH QID PRN #8.5 gram 06/19/21 Unknown Rx [ProAir HFA Inhaler] methylPREDNISolone [Medrol 4MG 4 mg PO DAILY #1 06/19/21 Unknown Rx DOSEPAK (21 tabs)] Albuterol Mdi (or & Nicu Only) 2 puff IH QID PRN #8.5 gram 07/14/21 Unknown Rx [ProAir HFA Inhaler] Albuterol Sulfate [Albuterol 0.63% 0.63 mg IH TID PRN #1 box 07/14/21 Unknown Rx NEBS] Benzonatate [Tessalon Perles] 100 mg PO Q8HR #21 cap 07/14/21 Unknown Rx Brompheniramine/Pseudoephed/Dm 10 ml PO TID PRN #120 ml 07/14/21 Unknown Rx [Bromfed Dm Cough Syrup] Montelukast [Singulair] 10 mg PO QPM #30 tablet 07/14/21 Unknown Rx Prednisone [predniSONE 10 mg 10 mg PO .TAPER #1 pack 07/14/21 Unknown Rx (6-Day Pack, 21 Tabs)] Albuterol Sulfate [Albuterol 0.63% 0.63 mg IH Q4HR PRN #2 ml 08/02/21 Unknown Rx NEBS] Albuterol Sulfate [Proair 90 mcg IH Q4HR PRN #2 aer.pow.ba 08/02/21 Unknown Rx Respiclick] predniSONE [Deltasone] 40 mg PO QDAY #8 tab 08/02/21 Unknown Rx ALBUTEROL NEB's [Proventil 0.083% 5 mg IH TID PRN #75 ml 09/07/21 Unknown Rx NEBS] Albuterol Mdi (or & Nicu Only) 2 puff IH QID PRN #1 inhalation 09/07/21 Unknown Rx [ProAir HFA Inhaler] Benzonatate [Tessalon Perles] 100 mg PO Q8HR PRN #30 capsule 09/07/21 Unknown Rx Loratadine 10 mg PO DAILY #30 cap 09/07/21 Unknown Rx Montelukast [Singulair] 10 mg PO QPM #30 tablet 09/07/21 Unknown Rx Prednisone [predniSONE 10 mg 10 mg PO .TAPER #21 tab.ds.pk 09/07/21 Unknown Rx (6-Day Pack, 21 Tabs)] Albuterol Sulfate [Albuterol 0.63% 0.63 mg IH Q4HR PRN #2 ml 09/17/21 Unknown Rx NEBS] Albuterol Sulfate [Proair 90 mcg IH Q4HR PRN #2 aer.pow.ba 09/17/21 Unknown Rx Respiclick] Montelukast [Singulair] 10 mg PO QPM #30 tablet 09/17/21 Unknown Rx predniSONE [Deltasone] 40 mg PO QDAY #8 tab 09/17/21 Unknown Rx Albuterol Mdi (or & Nicu Only) 2 puff IH QID PRN 30 Days #8.5 gram 10/01/21 Unknown Rx [ProAir HFA Inhaler] Albuterol Sulfate [Albuterol 0.63% 0.63 mg IH TID PRN 30 Days #1 box 10/01/21 Unknown Rx NEBS] predniSONE [Deltasone] 50 mg PO QDAY 5 Days #5 tab 10/01/21 Unknown Rx Albuterol Mdi (or & Nicu Only) 2 puff IH QID PRN #8.5 gram 10/28/21 Unknown Rx [ProAir HFA Inhaler] Albuterol Sulfate [Albuterol 0.63% 0.63 mg IH TID PRN 30 Days #1 box 10/28/21 Unknown Rx NEBS] predniSONE [Deltasone] 50 mg PO QDAY 5 Days #5 tab 10/28/21 Unknown Rx Allergies Allergy/AdvReac Type Severity Reaction Status Date / Time No Known Allergies Allergy Verified 09/18/21 11:50 ED Review of Systems ROS: Stated complaint: ASTHMA/SOB/CHEST TIGHTNESS Other details as noted in HPI Constitutional: denies: chills, fever Eyes: denies: eye pain, eye discharge, vision change ENT: denies: ear pain, throat pain Respiratory: wheezing. denies: cough, shortness of breath Cardiovascular: denies: chest pain, palpitations Endocrine: no symptoms reported Gastrointestinal: denies: abdominal pain, nausea, diarrhea Genitourinary: denies: urgency, dysuria Musculoskeletal: denies: back pain, joint swelling, arthralgia Skin: denies: rash, lesions Neurological: denies: headache, weakness, paresthesias Psychiatric: denies: anxiety, depression Hematological/Lymphatic: denies: easy bleeding, easy bruising ED Past Medical Hx - Past Medical History Previous Medical History?: Yes Hx Asthma: Yes (Intubation x2) - Surgical History Past Surgical History?: No - Social History Smoking Status: Unknown if ever smoked - Medications Home Medications: Home Medications Medication Instructions Recorded Confirmed Last Taken Type Ibuprofen [Motrin 800 MG tab] 800 mg PO Q8HR PRN #30 tablet 09/03/19 Unknown Rx ALBUTEROL NEB's [Proventil 0.083% 2.5 mg IH TID PRN #30 neb 10/23/19 Unknown Rx NEBS] Ibuprofen [Motrin 600 MG tab] 600 mg PO Q8H PRN #20 tablet 03/28/20 Unknown Rx ALBUTEROL NEB's [Proventil 0.083% 2.5 mg IH TID PRN #1 box 04/15/20 Unknown Rx NEBS] Albuterol Mdi (or & Nicu Only) 2 puff IH QID PRN #1 inhalation 12/01/20 Unknown Rx [ProAir HFA Inhaler] Albuterol Sulfate [Albuterol 0.63% 0.63 mg IH TID PRN #1 box 12/01/20 Unknown Rx NEBS] Azithromycin [Zithromax Z-MARI] 250 mg PO DAILY #6 tab 12/01/20 Unknown Rx Montelukast [Singulair] 10 mg PO QPM #14 tablet 12/01/20 Unknown Rx Prednisone [predniSONE 10 mg 10 mg PO .TAPER #1 tab.ds.pk 12/01/20 Unknown Rx (6-Day Pack, 21 Tabs)] Albuterol Mdi (or & Nicu Only) 2 puff IH QID PRN #8.5 gram 01/17/21 Unknown Rx [ProAir HFA Inhaler] Albuterol Sulfate [Albuterol 0.63% 0.63 mg IH TID PRN #75 ml 02/11/21 Unknown Rx NEBS] Prednisone [predniSONE 10 mg 10 mg PO .TAPER #1 tab.ds.pk 02/11/21 Unknown Rx (6-Day Pack, 21 Tabs)] ALBUTEROL NEB's [Proventil 0.083% 2.5 mg IH TID PRN #1 box 04/28/21 Unknown Rx NEBS] Albuterol Mdi (or & Nicu Only) 2 puff IH QID PRN #8.5 gram 04/28/21 Unknown Rx [ProAir HFA Inhaler] Loratadine 10 mg PO DAILY 30 Days #30 capsule 04/28/21 Unknown Rx Prednisone [predniSONE 10 mg 10 mg PO .TAPER #1 tab.ds.pk 04/28/21 Unknown Rx (6-Day Pack, 21 Tabs)] ALBUTEROL NEB's [Proventil 0.083% 2.5 mg IH QID PRN #1 box 05/12/21 Unknown Rx NEBS] Albuterol Mdi (or & Nicu Only) 2 puff IH QID PRN #8.5 gram 05/12/21 Unknown Rx [ProAir HFA Inhaler] Budesonide/Formoterol Fumarate 1 inhalation IH DAILY #1 hfa.aer.ad 05/12/21 Unknown Rx [Symbicort 160-4.5 Mcg Inhaler] predniSONE [Deltasone] 40 mg PO QDAY 5 Days #10 tab 05/12/21 Unknown Rx ALBUTEROL NEB's [Proventil 0.083% 2.5 mg IH TID PRN #1 box 05/21/21 Unknown Rx NEBS] Albuterol Mdi (or & Nicu Only) 2 puff IH QID PRN #1 device 05/21/21 Unknown Rx [ProAir HFA Inhaler] Budesonide/Formoterol Fumarate 2 puff IH BID #1 device 05/21/21 Unknown Rx [Symbicort 160-4.5 Mcg Inhaler] Montelukast [Singulair] 10 mg PO QPM #30 tablet 05/21/21 Unknown Rx Prednisone [predniSONE 10 mg 10 mg PO .TAPER #1 05/21/21 Unknown Rx (6-Day Pack, 21 Tabs)] Albuterol Mdi (or & Nicu Only) 2 puff IH QID PRN #8.5 gram 06/19/21 Unknown Rx [ProAir HFA Inhaler] methylPREDNISolone [Medrol 4MG 4 mg PO DAILY #1 06/19/21 Unknown Rx DOSEPAK (21 tabs)] Albuterol Mdi (or & Nicu Only) 2 puff IH QID PRN #8.5 gram 07/14/21 Unknown Rx [ProAir HFA Inhaler] Albuterol Sulfate [Albuterol 0.63% 0.63 mg IH TID PRN #1 box 07/14/21 Unknown Rx NEBS] Benzonatate [Tessalon Perles] 100 mg PO Q8HR #21 cap 07/14/21 Unknown Rx Brompheniramine/Pseudoephed/Dm 10 ml PO TID PRN #120 ml 07/14/21 Unknown Rx [Bromfed Dm Cough Syrup] Montelukast [Singulair] 10 mg PO QPM #30 tablet 07/14/21 Unknown Rx Prednisone [predniSONE 10 mg 10 mg PO .TAPER #1 pack 07/14/21 Unknown Rx (6-Day Pack, 21 Tabs)] Albuterol Sulfate [Albuterol 0.63% 0.63 mg IH Q4HR PRN #2 ml 08/02/21 Unknown Rx NEBS] Albuterol Sulfate [Proair 90 mcg IH Q4HR PRN #2 aer.pow.ba 08/02/21 Unknown Rx Respiclick] predniSONE [Deltasone] 40 mg PO QDAY #8 tab 08/02/21 Unknown Rx ALBUTEROL NEB's [Proventil 0.083% 5 mg IH TID PRN #75 ml 09/07/21 Unknown Rx NEBS] Albuterol Mdi (or & Nicu Only) 2 puff IH QID PRN #1 inhalation 09/07/21 Unknown Rx [ProAir HFA Inhaler] Benzonatate [Tessalon Perles] 100 mg PO Q8HR PRN #30 capsule 09/07/21 Unknown Rx Loratadine 10 mg PO DAILY #30 cap 09/07/21 Unknown Rx Montelukast [Singulair] 10 mg PO QPM #30 tablet 09/07/21 Unknown Rx Prednisone [predniSONE 10 mg 10 mg PO .TAPER #21 tab.ds.pk 09/07/21 Unknown Rx (6-Day Pack, 21 Tabs)] Albuterol Sulfate [Albuterol 0.63% 0.63 mg IH Q4HR PRN #2 ml 09/17/21 Unknown Rx NEBS] Albuterol Sulfate [Proair 90 mcg IH Q4HR PRN #2 aer.pow.ba 09/17/21 Unknown Rx Respiclick] Montelukast [Singulair] 10 mg PO QPM #30 tablet 09/17/21 Unknown Rx predniSONE [Deltasone] 40 mg PO QDAY #8 tab 09/17/21 Unknown Rx Albuterol Mdi (or & Nicu Only) 2 puff IH QID PRN 30 Days #8.5 gram 10/01/21 Unknown Rx [ProAir HFA Inhaler] Albuterol Sulfate [Albuterol 0.63% 0.63 mg IH TID PRN 30 Days #1 box 10/01/21 Unknown Rx NEBS] predniSONE [Deltasone] 50 mg PO QDAY 5 Days #5 tab 10/01/21 Unknown Rx Albuterol Mdi (or & Nicu Only) 2 puff IH QID PRN #8.5 gram 10/28/21 Unknown Rx [ProAir HFA Inhaler] Albuterol Sulfate [Albuterol 0.63% 0.63 mg IH TID PRN 30 Days #1 box 10/28/21 Unknown Rx NEBS] predniSONE [Deltasone] 50 mg PO QDAY 5 Days #5 tab 10/28/21 Unknown Rx ED Physical Exam - General Limitations: No Limitations General appearance: alert, in no apparent distress - Head Head exam: Present: atraumatic, normocephalic - Eye Eye exam: Present: normal appearance - ENT ENT exam: Present: mucous membranes moist - Neck Neck exam: Present: normal inspection - Respiratory Respiratory exam: Present: normal lung sounds bilaterally, wheezes. Absent: respiratory distress - Cardiovascular Cardiovascular Exam: Present: regular rate, normal rhythm. Absent: systolic murmur, diastolic murmur, rubs, gallop - GI/Abdominal GI/Abdominal exam: Present: soft, normal bowel sounds - Rectal Rectal exam: Present: deferred - Extremities Exam Extremities exam: Present: normal inspection - Back Exam Back exam: Present: normal inspection - Neurological Exam Neurological exam: Present: alert, oriented X3 - Psychiatric Psychiatric exam: Present: normal affect, normal mood - Skin Skin exam: Present: warm, dry, intact, normal color. Absent: rash ED Course Vital Signs 10/28/21 10/28/21 10:09 16:44 Temperature 98.2 F 98.0 F Pulse Rate 80 73 Respiratory 20 18 Rate Blood Pressure 132/59 Blood Pressure 112/80 132/59 [Right] O2 Sat by Pulse 98 99 Oximetry ED Medical Decision Making - Medical Decision Making 41-year-old female presents to the ED complaining of shortness of breath times this a.m. patient has a history of asthma has been intubated several times. Patient states that he do not have a current primary care doctor. Patient states that he frequently comes to the ED for asthma medication. Patient states that he is working on his financial situation so that he would be able to get to a primary care doctor. Patient states he do have a nebulizer machine at home. He is currently out of the medication. Patient is alert and oriented x3. No acute distress noted. No ill appearance noted. Physical examination daniel ramsey has wheezing noted . Albuterol 5 mg with Atrovent 0.5 neb given. Solu- Medrol 125 mg given IM. Rechecked the patient is resting quietly quietly and comfortable and feeling better. I discussed the results of diagnostic study, my clinical impression and the plan for further treatment with the patient. Patient agrees with plan and discharge at this present time. All question addressed. I have given the patient instruction regarding a diagnosis ,expectation ,follow- up and return precaution. I explained to the patient that emergent condition may arise and to return to the ED for new worsen and any new persisting condition. I have explained the importance of following up with the primary care physician or referral physician listed below has instructed. The patient verbalized understanding of discharge instruction. Critical care attestation.: If time is entered above; I have spent that time in minutes in the direct care of this critically ill patient, excluding procedure time. ED Disposition Clinical Impression: Asthma attack Disposition: 01 HOME / SELF CARE / HOMELESS Is pt being admited?: No Does the pt Need Aspirin: No Condition: Stable Instructions: Asthma, Adult, [id number] Additional Instructions: Take medication as prescribed Turn to ED for any worsening symptom Prescriptions: Albuterol Sulfate [Albuterol 0.63% NEBS] 0.63 mg IH TID PRN 30 Days #1 box PRN Reason: Wheezing predniSONE [Deltasone] 50 mg PO QDAY 5 Days #5 tab Albuterol Mdi (or & Nicu Only) [ProAir HFA Inhaler] 2 puff IH QID PRN #8.5 gram PRN Reason: Shortness Of Breath Referrals: JHONATAN GALLARDO MD [Staff Physician] - 3-5 Days Forms: Work/School Release Form(ED) Time of Disposition: 17:56
[2021-10-28 18:05] VITALS: BP 127/65
== END 2021-10-28 18:03 | disposition home or self-care (01) ==
LOC: ED 09:26
DX: J45.909 Unspecified asthma, uncomplicated (principal)
CPT/HCPCS: 94640; 96372; 99283; J2930; 94644

== ENCOUNTER 2021-11-18 22:29 | Emergency (ER) | payer SELFPAY ==
[2021-11-19] MEDS ORDERED: ALBUTEROL 2.5 MG/3 ML NEBU IH ONE (00:04)
[2021-11-19] MEDS ORDERED: IPRATROPIUM 0.02% NEBU 2.5 ML IH ONE (00:04)
[2021-11-19] MEDS ORDERED: methylPREDNISolone Sod Succinate 125 MG/2 ML INJ IM ONE (00:05)
--- NOTE | 2021-11-19 01:13 | Emergency Department Report ---
ED Shortness of Breath HPI - General Chief Complaint: Adult Asthma Stated Complaint: ASTHMA ATTACK Source: patient Mode of arrival: Ambulatory Limitations: No Limitations - History of Present Illness Initial Comments: Patient is a 41-year-old -[place] male with a history of asthma presents to the ED with complaint of acute onset persistent shortness of breath, nasal and sinus congestion, persistent dry cough with chest tightness and wheezing for the last 4 days. Patient states that he has been using his albuterol nebulizer and inhalers at home with no relief. Patient states that in the last 12 hours he symptoms have worsened. Patient denies dizziness, syncope, chest pain, nausea and vomiting, fever, chills, sore throat, hypertension, abdominal pain, diarrhea, dysuria, neck pain, lightheadedness or change in vision. MD Complaint: shortness of breath, cough, "asthma attack" -: Sudden, days(s) (4) Severity: moderate Quality: other (Chest tightness) Consistency: intermittent Improves With: nothing Worsens With: coughing Known History Of: asthma Context: recent URI, allergen exposure Associated Symptoms: chest pain (Chest tightness), cough Treatments Prior to Arrival: bronchodilator - Related Data Home Oxygen Therapy: No Previous Rx's Medication Instructions Recorded Last Taken Type Ibuprofen [Motrin 800 MG tab] 800 mg PO Q8HR PRN #30 tablet 09/03/19 Unknown Rx ALBUTEROL NEB's [Proventil 0.083% 2.5 mg IH TID PRN #30 neb 10/23/19 Unknown Rx NEBS] Ibuprofen [Motrin 600 MG tab] 600 mg PO Q8H PRN #20 tablet 03/28/20 Unknown Rx ALBUTEROL NEB's [Proventil 0.083% 2.5 mg IH TID PRN #1 box 04/15/20 Unknown Rx NEBS] Albuterol Mdi (or & Nicu Only) 2 puff IH QID PRN #1 inhalation 12/01/20 Unknown Rx [ProAir HFA Inhaler] Albuterol Sulfate [Albuterol 0.63% 0.63 mg IH TID PRN #1 box 12/01/20 Unknown Rx NEBS] Azithromycin [Zithromax Z-MARI] 250 mg PO DAILY #6 tab 12/01/20 Unknown Rx Montelukast [Singulair] 10 mg PO QPM #14 tablet 12/01/20 Unknown Rx Prednisone [predniSONE 10 mg 10 mg PO .TAPER #1 tab.ds.pk 12/01/20 Unknown Rx (6-Day Pack, 21 Tabs)] Albuterol Mdi (or & Nicu Only) 2 puff IH QID PRN #8.5 gram 01/17/21 Unknown Rx [ProAir HFA Inhaler] Albuterol Sulfate [Albuterol 0.63% 0.63 mg IH TID PRN #75 ml 02/11/21 Unknown Rx NEBS] Prednisone [predniSONE 10 mg 10 mg PO .TAPER #1 tab.ds.pk 02/11/21 Unknown Rx (6-Day Pack, 21 Tabs)] ALBUTEROL NEB's [Proventil 0.083% 2.5 mg IH TID PRN #1 box 04/28/21 Unknown Rx NEBS] Albuterol Mdi (or & Nicu Only) 2 puff IH QID PRN #8.5 gram 04/28/21 Unknown Rx [ProAir HFA Inhaler] Loratadine 10 mg PO DAILY 30 Days #30 capsule 04/28/21 Unknown Rx Prednisone [predniSONE 10 mg 10 mg PO .TAPER #1 tab.ds.pk 04/28/21 Unknown Rx (6-Day Pack, 21 Tabs)] ALBUTEROL NEB's [Proventil 0.083% 2.5 mg IH QID PRN #1 box 05/12/21 Unknown Rx NEBS] Albuterol Mdi (or & Nicu Only) 2 puff IH QID PRN #8.5 gram 05/12/21 Unknown Rx [ProAir HFA Inhaler] Budesonide/Formoterol Fumarate 1 inhalation IH DAILY #1 hfa.aer.ad 05/12/21 Unknown Rx [Symbicort 160-4.5 Mcg Inhaler] predniSONE [Deltasone] 40 mg PO QDAY 5 Days #10 tab 05/12/21 Unknown Rx ALBUTEROL NEB's [Proventil 0.083% 2.5 mg IH TID PRN #1 box 05/21/21 Unknown Rx NEBS] Albuterol Mdi (or & Nicu Only) 2 puff IH QID PRN #1 device 05/21/21 Unknown Rx [ProAir HFA Inhaler] Budesonide/Formoterol Fumarate 2 puff IH BID #1 device 05/21/21 Unknown Rx [Symbicort 160-4.5 Mcg Inhaler] Montelukast [Singulair] 10 mg PO QPM #30 tablet 05/21/21 Unknown Rx Prednisone [predniSONE 10 mg 10 mg PO .TAPER #1 05/21/21 Unknown Rx (6-Day Pack, 21 Tabs)] Albuterol Mdi (or & Nicu Only) 2 puff IH QID PRN #8.5 gram 06/19/21 Unknown Rx [ProAir HFA Inhaler] Albuterol Mdi (or & Nicu Only) 2 puff IH QID PRN #8.5 gram 07/14/21 Unknown Rx [ProAir HFA Inhaler] Albuterol Sulfate [Albuterol 0.63% 0.63 mg IH TID PRN #1 box 07/14/21 Unknown Rx NEBS] Benzonatate [Tessalon Perles] 100 mg PO Q8HR #21 cap 07/14/21 Unknown Rx Brompheniramine/Pseudoephed/Dm 10 ml PO TID PRN #120 ml 07/14/21 Unknown Rx [Bromfed Dm Cough Syrup] Montelukast [Singulair] 10 mg PO QPM #30 tablet 07/14/21 Unknown Rx Prednisone [predniSONE 10 mg 10 mg PO .TAPER #1 pack 07/14/21 Unknown Rx (6-Day Pack, 21 Tabs)] Albuterol Sulfate [Albuterol 0.63% 0.63 mg IH Q4HR PRN #2 ml 08/02/21 Unknown Rx NEBS] Albuterol Sulfate [Proair 90 mcg IH Q4HR PRN #2 aer.pow.ba 08/02/21 Unknown Rx Respiclick] predniSONE [Deltasone] 40 mg PO QDAY #8 tab 08/02/21 Unknown Rx ALBUTEROL NEB's [Proventil 0.083% 5 mg IH TID PRN #75 ml 09/07/21 Unknown Rx NEBS] Albuterol Mdi (or & Nicu Only) 2 puff IH QID PRN #1 inhalation 09/07/21 Unknown Rx [ProAir HFA Inhaler] Benzonatate [Tessalon Perles] 100 mg PO Q8HR PRN #30 capsule 09/07/21 Unknown Rx Loratadine 10 mg PO DAILY #30 cap 09/07/21 Unknown Rx Montelukast [Singulair] 10 mg PO QPM #30 tablet 09/07/21 Unknown Rx Prednisone [predniSONE 10 mg 10 mg PO .TAPER #21 tab.ds.pk 09/07/21 Unknown Rx (6-Day Pack, 21 Tabs)] Albuterol Sulfate [Albuterol 0.63% 0.63 mg IH Q4HR PRN #2 ml 09/17/21 Unknown Rx NEBS] Albuterol Sulfate [Proair 90 mcg IH Q4HR PRN #2 aer.pow.ba 09/17/21 Unknown Rx Respiclick] Montelukast [Singulair] 10 mg PO QPM #30 tablet 09/17/21 Unknown Rx predniSONE [Deltasone] 40 mg PO QDAY #8 tab 09/17/21 Unknown Rx Albuterol Mdi (or & Nicu Only) 2 puff IH QID PRN 30 Days #8.5 gram 10/01/21 Unknown Rx [ProAir HFA Inhaler] Albuterol Sulfate [Albuterol 0.63% 0.63 mg IH TID PRN 30 Days #1 box 10/01/21 Unknown Rx NEBS] predniSONE [Deltasone] 50 mg PO QDAY 5 Days #5 tab 10/01/21 Unknown Rx Albuterol Mdi (or & Nicu Only) 2 puff IH QID PRN #8.5 gram 10/28/21 Unknown Rx [ProAir HFA Inhaler] Albuterol Sulfate [Albuterol 0.63% 0.63 mg IH TID PRN 30 Days #1 box 10/28/21 Unknown Rx NEBS] predniSONE [Deltasone] 50 mg PO QDAY 5 Days #5 tab 10/28/21 Unknown Rx Benzonatate [Tessalon Perles] 100 mg PO Q8HR #30 cap 11/19/21 Unknown Rx Montelukast [Singulair] 10 mg PO QPM #30 tablet 11/19/21 Unknown Rx methylPREDNISolone [Medrol 4MG 4 mg PO DAILY #21 tab 11/19/21 Unknown Rx DOSEPAK (21 tabs)] Allergies Allergy/AdvReac Type Severity Reaction Status Date / Time No Known Allergies Allergy Verified 09/18/21 11:50 ED Review of Systems ROS: Stated complaint: ASTHMA ATTACK Other details as noted in HPI Constitutional: denies: chills, fever Eyes: denies: eye pain, eye discharge, vision change ENT: congestion. denies: ear pain, throat pain Respiratory: cough, shortness of breath, wheezing Cardiovascular: chest pain (Chest tightness). denies: palpitations Endocrine: no symptoms reported Gastrointestinal: denies: abdominal pain, nausea, vomiting, diarrhea Genitourinary: denies: urgency, dysuria Musculoskeletal: denies: back pain, joint swelling, arthralgia Skin: denies: rash, lesions Neurological: denies: headache, weakness, paresthesias Psychiatric: denies: anxiety, depression Hematological/Lymphatic: denies: easy bleeding, easy bruising ED Past Medical Hx - Past Medical History Hx Asthma: Yes (Intubation x2) - Social History Smoking Status: Unknown if ever smoked - Medications Home Medications: Home Medications Medication Instructions Recorded Confirmed Last Taken Type Ibuprofen [Motrin 800 MG tab] 800 mg PO Q8HR PRN #30 tablet 09/03/19 Unknown Rx ALBUTEROL NEB's [Proventil 0.083% 2.5 mg IH TID PRN #30 neb 10/23/19 Unknown Rx NEBS] Ibuprofen [Motrin 600 MG tab] 600 mg PO Q8H PRN #20 tablet 03/28/20 Unknown Rx ALBUTEROL NEB's [Proventil 0.083% 2.5 mg IH TID PRN #1 box 04/15/20 Unknown Rx NEBS] Albuterol Mdi (or & Nicu Only) 2 puff IH QID PRN #1 inhalation 12/01/20 Unknown Rx [ProAir HFA Inhaler] Albuterol Sulfate [Albuterol 0.63% 0.63 mg IH TID PRN #1 box 12/01/20 Unknown Rx NEBS] Azithromycin [Zithromax Z-MARI] 250 mg PO DAILY #6 tab 12/01/20 Unknown Rx Montelukast [Singulair] 10 mg PO QPM #14 tablet 12/01/20 Unknown Rx Prednisone [predniSONE 10 mg 10 mg PO .TAPER #1 tab.ds.pk 12/01/20 Unknown Rx (6-Day Pack, 21 Tabs)] Albuterol Mdi (or & Nicu Only) 2 puff IH QID PRN #8.5 gram 01/17/21 Unknown Rx [ProAir HFA Inhaler] Albuterol Sulfate [Albuterol 0.63% 0.63 mg IH TID PRN #75 ml 02/11/21 Unknown Rx NEBS] Prednisone [predniSONE 10 mg 10 mg PO .TAPER #1 tab.ds.pk 02/11/21 Unknown Rx (6-Day Pack, 21 Tabs)] ALBUTEROL NEB's [Proventil 0.083% 2.5 mg IH TID PRN #1 box 04/28/21 Unknown Rx NEBS] Albuterol Mdi (or & Nicu Only) 2 puff IH QID PRN #8.5 gram 04/28/21 Unknown Rx [ProAir HFA Inhaler] Loratadine 10 mg PO DAILY 30 Days #30 capsule 04/28/21 Unknown Rx Prednisone [predniSONE 10 mg 10 mg PO .TAPER #1 tab.ds.pk 04/28/21 Unknown Rx (6-Day Pack, 21 Tabs)] ALBUTEROL NEB's [Proventil 0.083% 2.5 mg IH QID PRN #1 box 05/12/21 Unknown Rx NEBS] Albuterol Mdi (or & Nicu Only) 2 puff IH QID PRN #8.5 gram 05/12/21 Unknown Rx [ProAir HFA Inhaler] Budesonide/Formoterol Fumarate 1 inhalation IH DAILY #1 hfa.aer.ad 05/12/21 Unknown Rx [Symbicort 160-4.5 Mcg Inhaler] predniSONE [Deltasone] 40 mg PO QDAY 5 Days #10 tab 05/12/21 Unknown Rx ALBUTEROL NEB's [Proventil 0.083% 2.5 mg IH TID PRN #1 box 05/21/21 Unknown Rx NEBS] Albuterol Mdi (or & Nicu Only) 2 puff IH QID PRN #1 device 05/21/21 Unknown Rx [ProAir HFA Inhaler] Budesonide/Formoterol Fumarate 2 puff IH BID #1 device 05/21/21 Unknown Rx [Symbicort 160-4.5 Mcg Inhaler] Montelukast [Singulair] 10 mg PO QPM #30 tablet 05/21/21 Unknown Rx Prednisone [predniSONE 10 mg 10 mg PO .TAPER #1 05/21/21 Unknown Rx (6-Day Pack, 21 Tabs)] Albuterol Mdi (or & Nicu Only) 2 puff IH QID PRN #8.5 gram 06/19/21 Unknown Rx [ProAir HFA Inhaler] Albuterol Mdi (or & Nicu Only) 2 puff IH QID PRN #8.5 gram 07/14/21 Unknown Rx [ProAir HFA Inhaler] Albuterol Sulfate [Albuterol 0.63% 0.63 mg IH TID PRN #1 box 07/14/21 Unknown Rx NEBS] Benzonatate [Tessalon Perles] 100 mg PO Q8HR #21 cap 07/14/21 Unknown Rx Brompheniramine/Pseudoephed/Dm 10 ml PO TID PRN #120 ml 07/14/21 Unknown Rx [Bromfed Dm Cough Syrup] Montelukast [Singulair] 10 mg PO QPM #30 tablet 07/14/21 Unknown Rx Prednisone [predniSONE 10 mg 10 mg PO .TAPER #1 pack 07/14/21 Unknown Rx (6-Day Pack, 21 Tabs)] Albuterol Sulfate [Albuterol 0.63% 0.63 mg IH Q4HR PRN #2 ml 08/02/21 Unknown Rx NEBS] Albuterol Sulfate [Proair 90 mcg IH Q4HR PRN #2 aer.pow.ba 08/02/21 Unknown Rx Respiclick] predniSONE [Deltasone] 40 mg PO QDAY #8 tab 08/02/21 Unknown Rx ALBUTEROL NEB's [Proventil 0.083% 5 mg IH TID PRN #75 ml 09/07/21 Unknown Rx NEBS] Albuterol Mdi (or & Nicu Only) 2 puff IH QID PRN #1 inhalation 09/07/21 Unknown Rx [ProAir HFA Inhaler] Benzonatate [Tessalon Perles] 100 mg PO Q8HR PRN #30 capsule 09/07/21 Unknown Rx Loratadine 10 mg PO DAILY #30 cap 09/07/21 Unknown Rx Montelukast [Singulair] 10 mg PO QPM #30 tablet 09/07/21 Unknown Rx Prednisone [predniSONE 10 mg 10 mg PO .TAPER #21 tab.ds.pk 09/07/21 Unknown Rx (6-Day Pack, 21 Tabs)] Albuterol Sulfate [Albuterol 0.63% 0.63 mg IH Q4HR PRN #2 ml 09/17/21 Unknown Rx NEBS] Albuterol Sulfate [Proair 90 mcg IH Q4HR PRN #2 aer.pow.ba 09/17/21 Unknown Rx Respiclick] Montelukast [Singulair] 10 mg PO QPM #30 tablet 09/17/21 Unknown Rx predniSONE [Deltasone] 40 mg PO QDAY #8 tab 09/17/21 Unknown Rx Albuterol Mdi (or & Nicu Only) 2 puff IH QID PRN 30 Days #8.5 gram 10/01/21 Unknown Rx [ProAir HFA Inhaler] Albuterol Sulfate [Albuterol 0.63% 0.63 mg IH TID PRN 30 Days #1 box 10/01/21 Unknown Rx NEBS] predniSONE [Deltasone] 50 mg PO QDAY 5 Days #5 tab 10/01/21 Unknown Rx Albuterol Mdi (or & Nicu Only) 2 puff IH QID PRN #8.5 gram 10/28/21 Unknown Rx [ProAir HFA Inhaler] Albuterol Sulfate [Albuterol 0.63% 0.63 mg IH TID PRN 30 Days #1 box 10/28/21 Unknown Rx NEBS] predniSONE [Deltasone] 50 mg PO QDAY 5 Days #5 tab 10/28/21 Unknown Rx Benzonatate [Tessalon Perles] 100 mg PO Q8HR #30 cap 11/19/21 Unknown Rx Montelukast [Singulair] 10 mg PO QPM #30 tablet 11/19/21 Unknown Rx methylPREDNISolone [Medrol 4MG 4 mg PO DAILY #21 tab 11/19/21 Unknown Rx DOSEPAK (21 tabs)] ED Physical Exam - General Limitations: No Limitations General appearance: alert, in no apparent distress - Head Head exam: Present: atraumatic, normocephalic, normal inspection - Eye Eye exam: Present: normal appearance, PERRL, EOMI Pupils: Present: normal accommodation - ENT ENT exam: Present: normal orophraynx, mucous membranes moist, TM's normal bilaterally, normal external ear exam, other (Grossly congested nasal passages) - Neck Neck exam: Present: normal inspection, full ROM. Absent: tenderness - Respiratory Respiratory exam: Present: wheezes (Diffuse coarse wheezes throughout). Absent: normal lung sounds bilaterally, respiratory distress, rales, rhonchi, chest wall tenderness, accessory muscle use, decreased breath sounds, prolonged expiratory - Cardiovascular Cardiovascular Exam: Present: normal rhythm, tachycardia, normal heart sounds. Absent: systolic murmur, diastolic murmur, rubs, gallop - GI/Abdominal GI/Abdominal exam: Present: soft, normal bowel sounds. Absent: tenderness, guarding, rebound, hyperactive bowel sounds, hypoactive bowel sounds - Extremities Exam Extremities exam: Present: normal inspection, full ROM, normal capillary refill. Absent: tenderness - Back Exam Back exam: Present: normal inspection, full ROM. Absent: tenderness, CVA tenderness (R), CVA tenderness (L), muscle spasm, paraspinal tenderness, vertebral tenderness, rash noted - Neurological Exam Neurological exam: Present: alert, oriented X3, CN II-XII intact, normal gait, reflexes normal - Psychiatric Psychiatric exam: Present: normal affect, normal mood - Skin Skin exam: Present: warm, dry, intact, normal color. Absent: rash ED Course Vital Signs 11/18/21 11/19/21 22:36 00:05 Temperature 97.8 F Pulse Rate 100 H Pulse Rate [ 83 Posterior Bilateral Throughout] Respiratory 18 Rate Respiratory 16 Rate [Posterior Bilateral Throughout] Blood Pressure 108/71 O2 Sat by Pulse 100 Oximetry ED Medical Decision Making - Radiology Data Radiology results: report reviewed, image reviewed Chest x-ray showed no acute cardiopulmonary abnormalities or pneumonitis. - Medical Decision Making This is a 41-year-old -[place] male with a history of asthma presents to the ED with complaint of acute onset persistent shortness of breath, nasal and sinus congestion, persistent dry cough with chest tightness and wheezing for the last 4 days. Patient states that he has been using his albuterol nebulizer and inhalers at home with no relief. Patient states that in the last 12 hours he symptoms have worsened. In the ED, patient is alert and oriented x3 and is not in any distress. Patient is hemodynamically stable. Patient received Solu- Medrol 125 mg intramuscular injection in the ED. Patient also was treated with ipratropium and albuterol, DuoNeb for 1 hour. Chest x-ray showed no acute cardiopulmonary abnormalities or pneumonitis. On reevaluation, patient wheezing resolved, patient was discharged home on medications and advised to follow-up with his primary care physician in 5 to 7 days for reevaluation or return to the ED immediately if symptoms get worse. - Differential Diagnosis Asthma; bronchitis; URI; pneumonia; Critical care attestation.: If time is entered above; I have spent that time in minutes in the direct care of this critically ill patient, excluding procedure time. ED Disposition Clinical Impression: Acute bronchitis with asthma with acute exacerbation, Shortness of breath Disposition: HOME / SELF CARE / HOMELESS Is pt being admited?: No Does the pt Need Aspirin: No Condition: Stable Instructions: Shortness of Breath, Adult, [id number], Cough, Adult, [id number], Asthma, Adult, [id number], Acute Bronchitis, Adult, [id number] Additional Instructions: Chest x-ray showed no acute cardiopulmonary abnormalities or pneumonitis. Therefore take medications as advised, drink plenty of fluids, follow-up with your primary care physician in 5 to 7 days for reevaluation. Return to the ED immediately if symptoms get worse. Prescriptions: methylPREDNISolone [Medrol 4MG DOSEPAK (21 tabs)] 4 mg PO DAILY #21 tab Montelukast [Singulair] 10 mg PO QPM #30 tablet Benzonatate [Tessalon Perles] 100 mg PO Q8HR #30 cap Referrals: [facility] [Provider Group] - 7-10 days Time of Disposition: 01:14 Print Language: KOREAN
--- NOTE | 2021-11-19 02:11 | XRay Report ---
XR chest 1V ap INDICATION / CLINICAL INFORMATION: cough, dyspnea, asthma. COMPARISON: 10/01/2021 FINDINGS: SUPPORT DEVICES: None. HEART /PULMONARY VASCULATURE: No significant abnormality. LUNGS / PLEURA: No significant pulmonary or pleural abnormality. No pneumothorax. ADDITIONAL FINDINGS: No significant additional findings. IMPRESSION: 1. No acute findings. Signer Name: Lyle Galeas MD Signed: 11/19/2021 2:06 AM Workstation Name: [id number]
[2021-11-19 02:19] VITALS: BP 115/78
== END 2021-11-19 02:17 | disposition home or self-care (01) ==
LOC: ED 22:29
DX: J45.901 Unspecified asthma with (acute) exacerbation (principal); R06.02 Shortness of breath
CPT/HCPCS: 71045; 94644; 96372; 99283; J2930

== ENCOUNTER 2022-01-01 11:45 | Emergency (ER) | payer SELFPAY ==
[2022-01-01] MEDS ORDERED: ALBUTEROL 2.5 MG/3 ML NEBU IH ONE ×3 (12:02→16:55)
[2022-01-01] MEDS ORDERED: IPRATROPIUM 0.02% NEBU 2.5 ML IH ONE ×2 (12:02→12:11)
[2022-01-01] MEDS ORDERED: SODIUM CHLORIDE 0.9% 500 ML 500 ML IV ONE (12:11)
[2022-01-01] MEDS ORDERED: methylPREDNISolone Sod Succinate 125 MG/2 ML INJ IV ONE ×2 (12:11→13:07)
[2022-01-01] MEDS ORDERED: MAGNESIUM SULFATE 2 GM/50 ML BAG IV ONE (12:11)
[2022-01-01] MEDS ORDERED: TERBUTALINE 1 MG/1 ML INJ SUB-Q ONE (12:11)
--- NOTE | 2022-01-01 12:15 | Emergency Department Report ---
ED Shortness of Breath HPI - General Chief Complaint: Dyspnea/Respdistress Stated Complaint: ASTHMA Time Seen by Provider: 01/01/22 12:10 Source: EMS Mode of arrival: Stretcher Limitations: No Limitations - History of Present Illness Initial Comments: 41-year-old male with history of asthma (intubated twice) and history of respiratory failure presents the emergency department with an acute asthma exacerbation and respiratory distress. Patient states that he has been having the symptoms since this morning and symptoms include chest tightness, cough, shortness of breath, and wheezing. Patient denies lower extremity swelling or pain. Patient has been using nebulizers at home, without improvement, so he called EMS. He is patient is able to speak, but appears in mild respiratory distress. - Related Data Previous Rx's Medication Instructions Recorded Last Taken Type Ibuprofen [Motrin 800 MG tab] 800 mg PO Q8HR PRN #30 tablet 09/03/19 Unknown Rx ALBUTEROL NEB's [Proventil 0.083% 2.5 mg IH TID PRN #30 neb 10/23/19 Unknown Rx NEBS] Ibuprofen [Motrin 600 MG tab] 600 mg PO Q8H PRN #20 tablet 03/28/20 Unknown Rx ALBUTEROL NEB's [Proventil 0.083% 2.5 mg IH TID PRN #1 box 04/15/20 Unknown Rx NEBS] Albuterol Sulfate [Albuterol 0.63% 0.63 mg IH TID PRN #1 box 12/01/20 Unknown Rx NEBS] Azithromycin [Zithromax Z-MARI] 250 mg PO DAILY #6 tab 12/01/20 Unknown Rx Montelukast [Singulair] 10 mg PO QPM #14 tablet 12/01/20 Unknown Rx Prednisone [predniSONE 10 mg 10 mg PO .TAPER #1 tab.ds.pk 12/01/20 Unknown Rx (6-Day Pack, 21 Tabs)] Albuterol Mdi (or & Nicu Only) 2 puff IH QID PRN #8.5 gram 01/17/21 Unknown Rx [ProAir HFA Inhaler] Albuterol Sulfate [Albuterol 0.63% 0.63 mg IH TID PRN #75 ml 02/11/21 Unknown Rx NEBS] Prednisone [predniSONE 10 mg 10 mg PO .TAPER #1 tab.ds.pk 02/11/21 Unknown Rx (6-Day Pack, 21 Tabs)] ALBUTEROL NEB's [Proventil 0.083% 2.5 mg IH TID PRN #1 box 04/28/21 Unknown Rx NEBS] Albuterol Mdi (or & Nicu Only) 2 puff IH QID PRN #8.5 gram 04/28/21 Unknown Rx [ProAir HFA Inhaler] Loratadine 10 mg PO DAILY 30 Days #30 capsule 04/28/21 Unknown Rx Prednisone [predniSONE 10 mg 10 mg PO .TAPER #1 tab.ds.pk 04/28/21 Unknown Rx (6-Day Pack, 21 Tabs)] ALBUTEROL NEB's [Proventil 0.083% 2.5 mg IH QID PRN #1 box 05/12/21 Unknown Rx NEBS] Albuterol Mdi (or & Nicu Only) 2 puff IH QID PRN #8.5 gram 05/12/21 Unknown Rx [ProAir HFA Inhaler] Budesonide/Formoterol Fumarate 1 inhalation IH DAILY #1 hfa.aer.ad 05/12/21 Unknown Rx [Symbicort 160-4.5 Mcg Inhaler] predniSONE [Deltasone] 40 mg PO QDAY 5 Days #10 tab 05/12/21 Unknown Rx ALBUTEROL NEB's [Proventil 0.083% 2.5 mg IH TID PRN #1 box 05/21/21 Unknown Rx NEBS] Albuterol Mdi (or & Nicu Only) 2 puff IH QID PRN #1 device 05/21/21 Unknown Rx [ProAir HFA Inhaler] Budesonide/Formoterol Fumarate 2 puff IH BID #1 device 05/21/21 Unknown Rx [Symbicort 160-4.5 Mcg Inhaler] Montelukast [Singulair] 10 mg PO QPM #30 tablet 05/21/21 Unknown Rx Prednisone [predniSONE 10 mg 10 mg PO .TAPER #1 05/21/21 Unknown Rx (6-Day Pack, 21 Tabs)] Albuterol Mdi (or & Nicu Only) 2 puff IH QID PRN #8.5 gram 06/19/21 Unknown Rx [ProAir HFA Inhaler] Albuterol Mdi (or & Nicu Only) 2 puff IH QID PRN #8.5 gram 07/14/21 Unknown Rx [ProAir HFA Inhaler] Albuterol Sulfate [Albuterol 0.63% 0.63 mg IH TID PRN #1 box 07/14/21 Unknown Rx NEBS] Benzonatate [Tessalon Perles] 100 mg PO Q8HR #21 cap 07/14/21 Unknown Rx Brompheniramine/Pseudoephed/Dm 10 ml PO TID PRN #120 ml 07/14/21 Unknown Rx [Bromfed Dm Cough Syrup] Montelukast [Singulair] 10 mg PO QPM #30 tablet 07/14/21 Unknown Rx Prednisone [predniSONE 10 mg 10 mg PO .TAPER #1 pack 07/14/21 Unknown Rx (6-Day Pack, 21 Tabs)] Albuterol Sulfate [Albuterol 0.63% 0.63 mg IH Q4HR PRN #2 ml 08/02/21 Unknown Rx NEBS] Albuterol Sulfate [Proair 90 mcg IH Q4HR PRN #2 aer.pow.ba 08/02/21 Unknown Rx Respiclick] predniSONE [Deltasone] 40 mg PO QDAY #8 tab 08/02/21 Unknown Rx ALBUTEROL NEB's [Proventil 0.083% 5 mg IH TID PRN #75 ml 09/07/21 Unknown Rx NEBS] Albuterol Mdi (or & Nicu Only) 2 puff IH QID PRN #1 inhalation 09/07/21 Unknown Rx [ProAir HFA Inhaler] Benzonatate [Tessalon Perles] 100 mg PO Q8HR PRN #30 capsule 09/07/21 Unknown Rx Loratadine 10 mg PO DAILY #30 cap 09/07/21 Unknown Rx Montelukast [Singulair] 10 mg PO QPM #30 tablet 09/07/21 Unknown Rx Prednisone [predniSONE 10 mg 10 mg PO .TAPER #21 tab.ds.pk 09/07/21 Unknown Rx (6-Day Pack, 21 Tabs)] Albuterol Sulfate [Albuterol 0.63% 0.63 mg IH Q4HR PRN #2 ml 09/17/21 Unknown Rx NEBS] Albuterol Sulfate [Proair 90 mcg IH Q4HR PRN #2 aer.pow.ba 09/17/21 Unknown Rx Respiclick] Montelukast [Singulair] 10 mg PO QPM #30 tablet 09/17/21 Unknown Rx predniSONE [Deltasone] 40 mg PO QDAY #8 tab 09/17/21 Unknown Rx Albuterol Mdi (or & Nicu Only) 2 puff IH QID PRN 30 Days #8.5 gram 10/01/21 Unknown Rx [ProAir HFA Inhaler] Albuterol Sulfate [Albuterol 0.63% 0.63 mg IH TID PRN 30 Days #1 box 10/01/21 Unknown Rx NEBS] predniSONE [Deltasone] 50 mg PO QDAY 5 Days #5 tab 10/01/21 Unknown Rx Albuterol Mdi (or & Nicu Only) 2 puff IH QID PRN #8.5 gram 10/28/21 Unknown Rx [ProAir HFA Inhaler] Albuterol Sulfate [Albuterol 0.63% 0.63 mg IH TID PRN 30 Days #1 box 10/28/21 Unknown Rx NEBS] predniSONE [Deltasone] 50 mg PO QDAY 5 Days #5 tab 10/28/21 Unknown Rx Benzonatate [Tessalon Perles] 100 mg PO Q8HR #30 cap 11/19/21 Unknown Rx Montelukast [Singulair] 10 mg PO QPM #30 tablet 11/19/21 Unknown Rx Albuterol Mdi (or & Nicu Only) 2 puff IH QID PRN #1 inhalation 01/01/22 Unknown Rx [ProAir HFA Inhaler] methylPREDNISolone [Medrol 4MG 4 mg PO DAILY #21 tab 01/01/22 Unknown Rx DOSEPAK (21 tabs)] Allergies Allergy/AdvReac Type Severity Reaction Status Date / Time No Known Allergies Allergy Verified 01/01/22 11:57 ED Review of Systems ROS: Stated complaint: ASTHMA Other details as noted in HPI Comment: All other systems reviewed and negative Constitutional: denies: chills, fever, weakness Eyes: denies: eye pain, eye discharge, vision change ENT: denies: ear pain, throat pain Respiratory: cough, shortness of breath, wheezing Cardiovascular: chest pain. denies: palpitations, dyspnea on exertion Endocrine: no symptoms reported Gastrointestinal: denies: abdominal pain, nausea, diarrhea Genitourinary: denies: urgency, dysuria Musculoskeletal: denies: back pain, joint swelling, arthralgia Skin: denies: rash, lesions Neurological: denies: headache, weakness, paresthesias Psychiatric: denies: anxiety, depression Hematological/Lymphatic: denies: easy bleeding, easy bruising ED Past Medical Hx - Past Medical History Hx Asthma: Yes (Intubation x2) - Social History Smoking Status: Unknown if ever smoked - Medications Home Medications: Home Medications Medication Instructions Recorded Confirmed Last Taken Type Ibuprofen [Motrin 800 MG tab] 800 mg PO Q8HR PRN #30 tablet 09/03/19 Unknown Rx ALBUTEROL NEB's [Proventil 0.083% 2.5 mg IH TID PRN #30 neb 10/23/19 Unknown Rx NEBS] Ibuprofen [Motrin 600 MG tab] 600 mg PO Q8H PRN #20 tablet 03/28/20 Unknown Rx ALBUTEROL NEB's [Proventil 0.083% 2.5 mg IH TID PRN #1 box 04/15/20 Unknown Rx NEBS] Albuterol Sulfate [Albuterol 0.63% 0.63 mg IH TID PRN #1 box 12/01/20 Unknown Rx NEBS] Azithromycin [Zithromax Z-MARI] 250 mg PO DAILY #6 tab 12/01/20 Unknown Rx Montelukast [Singulair] 10 mg PO QPM #14 tablet 12/01/20 Unknown Rx Prednisone [predniSONE 10 mg 10 mg PO .TAPER #1 tab.ds.pk 12/01/20 Unknown Rx (6-Day Pack, 21 Tabs)] Albuterol Mdi (or & Nicu Only) 2 puff IH QID PRN #8.5 gram 01/17/21 Unknown Rx [ProAir HFA Inhaler] Albuterol Sulfate [Albuterol 0.63% 0.63 mg IH TID PRN #75 ml 02/11/21 Unknown Rx NEBS] Prednisone [predniSONE 10 mg 10 mg PO .TAPER #1 tab.ds.pk 02/11/21 Unknown Rx (6-Day Pack, 21 Tabs)] ALBUTEROL NEB's [Proventil 0.083% 2.5 mg IH TID PRN #1 box 04/28/21 Unknown Rx NEBS] Albuterol Mdi (or & Nicu Only) 2 puff IH QID PRN #8.5 gram 04/28/21 Unknown Rx [ProAir HFA Inhaler] Loratadine 10 mg PO DAILY 30 Days #30 capsule 04/28/21 Unknown Rx Prednisone [predniSONE 10 mg 10 mg PO .TAPER #1 tab.ds.pk 04/28/21 Unknown Rx (6-Day Pack, 21 Tabs)] ALBUTEROL NEB's [Proventil 0.083% 2.5 mg IH QID PRN #1 box 05/12/21 Unknown Rx NEBS] Albuterol Mdi (or & Nicu Only) 2 puff IH QID PRN #8.5 gram 05/12/21 Unknown Rx [ProAir HFA Inhaler] Budesonide/Formoterol Fumarate 1 inhalation IH DAILY #1 hfa.aer.ad 05/12/21 Unknown Rx [Symbicort 160-4.5 Mcg Inhaler] predniSONE [Deltasone] 40 mg PO QDAY 5 Days #10 tab 05/12/21 Unknown Rx ALBUTEROL NEB's [Proventil 0.083% 2.5 mg IH TID PRN #1 box 05/21/21 Unknown Rx NEBS] Albuterol Mdi (or & Nicu Only) 2 puff IH QID PRN #1 device 05/21/21 Unknown Rx [ProAir HFA Inhaler] Budesonide/Formoterol Fumarate 2 puff IH BID #1 device 05/21/21 Unknown Rx [Symbicort 160-4.5 Mcg Inhaler] Montelukast [Singulair] 10 mg PO QPM #30 tablet 05/21/21 Unknown Rx Prednisone [predniSONE 10 mg 10 mg PO .TAPER #1 05/21/21 Unknown Rx (6-Day Pack, 21 Tabs)] Albuterol Mdi (or & Nicu Only) 2 puff IH QID PRN #8.5 gram 06/19/21 Unknown Rx [ProAir HFA Inhaler] Albuterol Mdi (or & Nicu Only) 2 puff IH QID PRN #8.5 gram 07/14/21 Unknown Rx [ProAir HFA Inhaler] Albuterol Sulfate [Albuterol 0.63% 0.63 mg IH TID PRN #1 box 07/14/21 Unknown Rx NEBS] Benzonatate [Tessalon Perles] 100 mg PO Q8HR #21 cap 07/14/21 Unknown Rx Brompheniramine/Pseudoephed/Dm 10 ml PO TID PRN #120 ml 07/14/21 Unknown Rx [Bromfed Dm Cough Syrup] Montelukast [Singulair] 10 mg PO QPM #30 tablet 07/14/21 Unknown Rx Prednisone [predniSONE 10 mg 10 mg PO .TAPER #1 pack 07/14/21 Unknown Rx (6-Day Pack, 21 Tabs)] Albuterol Sulfate [Albuterol 0.63% 0.63 mg IH Q4HR PRN #2 ml 08/02/21 Unknown Rx NEBS] Albuterol Sulfate [Proair 90 mcg IH Q4HR PRN #2 aer.pow.ba 08/02/21 Unknown Rx Respiclick] predniSONE [Deltasone] 40 mg PO QDAY #8 tab 08/02/21 Unknown Rx ALBUTEROL NEB's [Proventil 0.083% 5 mg IH TID PRN #75 ml 09/07/21 Unknown Rx NEBS] Albuterol Mdi (or & Nicu Only) 2 puff IH QID PRN #1 inhalation 09/07/21 Unknown Rx [ProAir HFA Inhaler] Benzonatate [Tessalon Perles] 100 mg PO Q8HR PRN #30 capsule 09/07/21 Unknown Rx Loratadine 10 mg PO DAILY #30 cap 09/07/21 Unknown Rx Montelukast [Singulair] 10 mg PO QPM #30 tablet 09/07/21 Unknown Rx Prednisone [predniSONE 10 mg 10 mg PO .TAPER #21 tab.ds.pk 09/07/21 Unknown Rx (6-Day Pack, 21 Tabs)] Albuterol Sulfate [Albuterol 0.63% 0.63 mg IH Q4HR PRN #2 ml 09/17/21 Unknown Rx NEBS] Albuterol Sulfate [Proair 90 mcg IH Q4HR PRN #2 aer.pow.ba 09/17/21 Unknown Rx Respiclick] Montelukast [Singulair] 10 mg PO QPM #30 tablet 09/17/21 Unknown Rx predniSONE [Deltasone] 40 mg PO QDAY #8 tab 09/17/21 Unknown Rx Albuterol Mdi (or & Nicu Only) 2 puff IH QID PRN 30 Days #8.5 gram 10/01/21 Unknown Rx [ProAir HFA Inhaler] Albuterol Sulfate [Albuterol 0.63% 0.63 mg IH TID PRN 30 Days #1 box 10/01/21 Unknown Rx NEBS] predniSONE [Deltasone] 50 mg PO QDAY 5 Days #5 tab 10/01/21 Unknown Rx Albuterol Mdi (or & Nicu Only) 2 puff IH QID PRN #8.5 gram 10/28/21 Unknown Rx [ProAir HFA Inhaler] Albuterol Sulfate [Albuterol 0.63% 0.63 mg IH TID PRN 30 Days #1 box 10/28/21 Unknown Rx NEBS] predniSONE [Deltasone] 50 mg PO QDAY 5 Days #5 tab 10/28/21 Unknown Rx Benzonatate [Tessalon Perles] 100 mg PO Q8HR #30 cap 11/19/21 Unknown Rx Montelukast [Singulair] 10 mg PO QPM #30 tablet 11/19/21 Unknown Rx Albuterol Mdi (or & Nicu Only) 2 puff IH QID PRN #1 inhalation 01/01/22 Unknown Rx [ProAir HFA Inhaler] methylPREDNISolone [Medrol 4MG 4 mg PO DAILY #21 tab 01/01/22 Unknown Rx DOSEPAK (21 tabs)] ED Physical Exam - General Limitations: No Limitations General appearance: alert, in distress - Head Head exam: Present: atraumatic, normocephalic - Eye Eye exam: Present: normal appearance, PERRL, EOMI - ENT ENT exam: Present: mucous membranes moist - Neck Neck exam: Present: normal inspection - Respiratory Respiratory exam: Present: respiratory distress, wheezes, prolonged expiratory, other (Tripoding). Absent: rales, rhonchi - Cardiovascular Cardiovascular Exam: Present: normal rhythm, tachycardia. Absent: systolic murmur, diastolic murmur, rubs, gallop - GI/Abdominal GI/Abdominal exam: Present: soft, normal bowel sounds. Absent: distended, tenderness - Rectal Rectal exam: Present: deferred - Extremities Exam Extremities exam: Present: normal inspection, full ROM. Absent: calf tenderness - Back Exam Back exam: Present: normal inspection - Neurological Exam Neurological exam: Present: alert, oriented X3 - Psychiatric Psychiatric exam: Present: normal affect, normal mood - Skin Skin exam: Present: warm, dry, intact, normal color. Absent: rash ED Course Vital Signs 01/01/22 01/01/22 01/01/22 11:45 12:00 12:18 Temperature 98.4 F 98.3 F Pulse Rate 135 H 78 Pulse Rate [ 90 Bilateral] Respiratory 26 H 24 Rate Respiratory 18 Rate [Bilateral ] Blood Pressure 99/72 Blood Pressure 121/74 99/72 [Left] O2 Sat by Pulse 98 99 Oximetry 01/01/22 01/01/22 01/01/22 13:56 15:12 16:58 Temperature 98.2 F Pulse Rate 126 H 108 H 101 H Pulse Rate [ Bilateral] Respiratory 26 H 16 18 Rate Respiratory Rate [Bilateral ] Blood Pressure Blood Pressure 122/63 126/76 120/86 [Left] O2 Sat by Pulse 100 100 98 Oximetry 01/01/22 17:10 Temperature Pulse Rate Pulse Rate [ 86 Bilateral] Respiratory Rate Respiratory 20 Rate [Bilateral ] Blood Pressure Blood Pressure [Left] O2 Sat by Pulse Oximetry - Reevaluation(s) Reevaluation #1: 01/01/22 16:57 Patient had worsening of symptoms at 13:05 pm, so another dose of terbutaline, solumedrol were ordered for him. Patient refused BiPAP at that time. Currently, patient reports significant improvement of his symptoms, and is only mildly tachycardic, now. Patient is refusing admission, and request 1 more albuterol treatment, and then will sign out AGAINST MEDICAL ADVICE. Reevaluation #2: 01/01/22 20:06 Patient requested to sign out AGAINST MEDICAL ADVICE. Patient understood the benefits of hospitalization and the risks of leaving, and the patient was deemed competent to make this decision. ED Medical Decision Making - Lab Data Result diagrams: 01/01/22 12:52 01/01/22 12:52 - Medical Decision Making 41-year-old male with history of asthma presents to the emergency department with a presumptive asthma attack and symptoms which include shortness of breath, cough, chest tightness, and audible wheezing since this morning. Vital signs are remarkable for tachycardia (in the 130s), and tachypnea, but on oxygen the patient is saturating at 98%. Physical exam is concerning for patient that mary ears in mild respiratory distress, tripoding, is tachycardic, and is wheezing, and has poor inspiratory effort with prolonged expiratory phase. Patient's blood work was unremarkable and his chest x-ray did not show any acute cardiopulmonary disease. After several treatments and repeated exam, patient did show moderate improvement, but it was still desired that he be admitted for observation and further treatment. However, patient decided to sign out AGAINST MEDICAL ADVICE, but agreed with the plan which included returning to the emergency department if his symptoms became worse. Critical Care Time: Yes Critical care time in (mins) excluding proc time.: 39 Critical care attestation.: If time is entered above; I have spent that time in minutes in the direct care of this critically ill patient, excluding procedure time. ED Disposition Clinical Impression: Asthma exacerbation Qualifiers: Asthma severity: severe Asthma persistence: persistent Qualified Code(s): J45.51 - Severe persistent asthma with (acute) exacerbation Disposition: 07 LEFT AGAINST MEDICAL ADVICE Is pt being admited?: No Condition: Stable Instructions: Asthma, Adult, Bronchospasm, Adult Prescriptions: methylPREDNISolone [Medrol 4MG DOSEPAK (21 tabs)] 4 mg PO DAILY #21 tab Albuterol Mdi (or & Nicu Only) [ProAir HFA Inhaler] 2 puff IH QID PRN #1 inhalation PRN Reason: Shortness Of Breath Referrals: PRIMARY CARE, [Primary Care Provider] - 3-5 Days Time of Disposition: 19:02
[2022-01-01] MEDS ORDERED: LORazepam 2 MG/ML VIAL IV ONE (13:09)
[2022-01-01] MEDS ORDERED: TERBUTALINE 1 MG/1 ML INJ IVP ONE (13:09)
[2022-01-01 13:31] LABS: Basophils # (Auto) 0.1 K/mm3 (0.0-0.1); Basophils % (Auto) 0.9 % (0.0-1.8); Eosinophils # (Auto) 0.6 K/mm3 (0.0-0.4); Eosinophils % (Auto) 6.4 % (0.0-4.3); Hematocrit 45.1 % (35.5-45.6); Hemoglobin 14.8 gm/dl (11.8-15.2); Lymphocytes # (Auto) 3.2 K/mm3 (1.2-5.4); Lymphocytes % (Auto) 35.5 % (13.4-35.0); Mean Corpuscular HGB Conc 33 % (32-34); Mean Corpuscular Volume 95 fl (84-94); Monocytes # (Auto) 0.6 K/mm3 (0.0-0.8); Monocytes % (Auto) 6.5 % (0.0-7.3); Platelet Count 232 K/mm3 (140-440); Red Blood Count 4.76 M/mm3 (3.65-5.03); Red Cell Distribution Width 13.3 % (13.2-15.2)
[2022-01-01 13:46] LABS: BUN/Creatinine Ratio 7; Blood Urea Nitrogen 7 mg/dL (9-20); Hemolysis Index 5
--- NOTE | 2022-01-01 14:43 | XRay Report ---
CHEST 1 VIEW 01/01/2022 1:36 PM INDICATION / CLINICAL INFORMATION: Dyspnea. COMPARISON: 11/19/2021 FINDINGS: SUPPORT DEVICES: None. HEART / MEDIASTINUM: No significant abnormality. LUNGS / PLEURA: No significant pulmonary or pleural abnormality. No pneumothorax. ADDITIONAL FINDINGS: No significant additional findings. IMPRESSION: 1. No acute findings. Signer Name: Mitesh Baxter MD Signed: 01/01/2022 2:39 PM Workstation Name: [email or web address]
[2022-01-01] MEDS: IPRATROPIUM 0.02% NEBU 2.5 ML IH ONE ×2 (17:25→17:32)
[2022-01-01 20:03] VITALS: BP 115/70
== END 2022-01-01 19:20 | disposition left against medical advice (07) ==
LOC: ED 11:45
DX: J45.901 Unspecified asthma with (acute) exacerbation (principal)
CPT/HCPCS: 36415; 71045; 80048; 84484; 85025; 94644; 96365; 96372; 96375; 96376; 99284; J2060; J2930; J3105; J3475; J7040